=== PATIENT | male | born 1980 | race Caucasian/White ===

== ENCOUNTER 2019-10-16 13:48 | Emergency (ER) | payer OTHER, SELFPAY ==
[2019-10-16 14:00] VITALS: BP 138/79; PULSE 103; RESP 24; O2SAT 96; BMI 47.3
[2019-10-16 14:08] VITALS: BP 138/79; PULSE 103; RESP 18; TEMP 36.7; O2SAT 96; BMI 50.2
--- NOTE | 2019-10-16 14:10 | XR_ITS ---
PROCEDURE: XR HIP LT 2-3V W/PELVIS CLINICAL INDICATION: FALL Posttraumatic pain COMPARISON: No exams were available for comparison FINDINGS: No fracture or dislocation. Exostosis is noted along the anterior inferior iliac spine on the left. There is some deformity of the right ilium laterally and could be due to prior surgery. IMPRESSION: No acute findings. Dictated by: Weston Valenzuela MD 10/16/2019 16:15 Electronically signed by Weston Valenzuela MD in [place] 10/16/2019 16:15
--- NOTE | 2019-10-16 14:10 | XR_ITS ---
PROCEDURE: XR LUMBAR SPINE MIN 4V CLINICAL INDICATION: FALL Posttraumatic pain COMPARISON: No exams were available for comparison FINDINGS: There is normal alignment. No fracture or dislocation is evident. Degenerative disc disease is present at the thoracic lumbar junction. IMPRESSION: No acute findings. Dictated by: Weston Valenzuela MD 10/16/2019 16:16 Electronically signed by Weston Valenzuela MD in [place] 10/16/2019 16:16
--- NOTE | 2019-10-16 14:43 | HMH.EDUTC ---
[facility] [place] Disposition Clinical Impression: Low back strain Qualifiers: Encounter type: initial encounter Qualified Code(s): S39.012A - Strain of muscle, fascia and tendon of lower back, initial encounter Disposition: Home, Self-Care Condition on Discharge: Good Instructions: Low Back Pain (Alternative Therapy), Cyclobenzaprine, Nabumetone, DI for Muscle Spasm Additional Instructions: Tordol with meal as needed for pain/inflammation Do not start until at least 8hrs 11pm *Remember you had a Toradol shot in the clinic today, which is similar to Motrin *Not additional anti-inflammatory like motrin, aleve, advil, or ibuprofen with Torodol. You can still take Tylenol every 4 hours as needed if you need something else for pain *Ice 20 minutes every 2 hours for the first 48 hours after the initial injury followed by moist heat every 20 minutes 3-4 times a day to affected area *Muscle relaxer every 8 hours as needed for muscle spasms but remember, it WILL cause drowsiness You cannot take it and drive, operate machinery or care for small children. *Keep this area active, no movement leads to more stiffness, However take it easy and avoid heavy lifting pushing or pulling *Follow up with you family doctor if no improvement for further treatment Return if needed Straight to ER if any life threatening symptoms Prescriptions: Cyclobenzaprine HCl [Flexeril 10mg tablet] 10 mg PO TID PRN #15 tab PRN Reason: Muscle Spasm Transmission Status: Received by [facility] Ketorolac Tromethamine [Toradol 10mg tablet] 10 mg PO Q4-6H PRN 5 Days #30 tab PRN Reason: Moderate Pain Transmission Status: Received by [facility] Referrals: Kevon Son MD [Primary Care Provider] - As needed Forms: Work/School Release Time of Disposition: 15:03 Medical Decision Making - Mark Inquiry Pt receiving controlled substance: No Mark was queried for this patient: No Vital Signs: 10/16/19 14:00 10/16/19 14:08 10/16/19 15:09 Temperature 98.0 F 98 F Temperature Source Oral Oral Pulse Rate 103 H Pulse Rate [Right Radial] 103 H 103 H Respiratory Rate 24 18 18 Blood Pressure 138/79 Blood Pressure [Left Arm] 138/79 138/79 Blood Pressure Mean [Left Arm] 98 98 Blood Pressure Source Automatic Cuff Blood Pressure Source [Left Arm] Automatic Cuff Automatic Cuff Blood Pressure Position Sitting Blood Pressure Position [Left Arm] Standing Sitting 02 Sat by Pulse Oximetry 96 96 Oxygen Delivery Method Room Air Room Air Room Air Orders (Tests/Meds): ED MEDICATIONS Discontinued Medications Generic Name Dose Route Start Last Admin Trade Name [place] PRN Reason Stop Dose Admin Ketorolac Tromethamine 60 mg 10/16/19 14:47 10/16/19 14:49 Toradol 60mg/2ml Vial IM 10/16/19 14:48 60 mg ONCE ONE Administration - Radiology Data #1 Image(s): L-Spine Image Reviewed: Yes I reviewed the patient's radiology image w/the ED provider Preliminary Findings: No Fracture Seen #2 Image(s): Hip (left) - Reevaluation(s) Time: 15:00 Reevaluation #1: Patient state that medication helped with pain in his lower back area [facility] [place] HPI - General Stated complaint: strained back Time Seen by Provider: 10/16/19 14:43 Mode of Arrival: Ambulatory Source of Information: Patient Limitations: No Limitations Description of Symptoms (Recalled from Triage Doc. by RN): WAS LIFTING TIRES INTO TRUCK. TIRES SLIPPED AND HE HEARD A POP IN HIS BACK HEENT Symptoms (Recalled from RN notes): No Resp Symptoms (Recalled from RN notes): No Skin Symptoms (Recalled from RN notes): No MS Symptoms (Recalled from RN notes): Yes Functional Status (Recalled from RN notes): wnl - History of Present Illness Provider Complaint: Patient states that he was loading some semi tires on truck when tailgate strap broke and tire fell with him holding it and it jerked his back State that he felt a pop now feels like he is having spasms in his lower ba
[2019-10-16 15:09] VITALS: BP 138/79; PULSE 103; RESP 18; TEMP 36.6; O2SAT 96
== END 2019-10-16 15:21 | disposition home or self-care (01) ==
LOC: ER 13:59 → UTC 14:00
PROVIDERS: Emergency Provider Nurse Practitioner; PCP Family Medicine
DX: S39.012A Strain of muscle, fascia and tendon of lower back, initial encounter (principal); X50.0XXA Overexertion from strenuous movement or load, initial encounter; F17.210 Nicotine dependence, cigarettes, uncomplicated
CPT/HCPCS: 72100; 72110; 73502; 96372; 99202

== ENCOUNTER 2019-11-01 16:15 | Emergency (ER) | payer OTHER, SELFPAY ==
[2019-11-01 16:30] VITALS: BP 156/111; PULSE 86; RESP 22; TEMP 36.9; O2SAT 97; BMI 51.7
--- NOTE | 2019-11-01 16:46 | HMH.EDUTC ---
[facility] [place]ression: Sinusitis Qualifiers: Sinusitis location: unspecified location Chronicity: acute Recurrence: non-recurrent Qualified Code(s): J01.90 - Acute sinusitis, unspecified Otitis media Qualifiers: Otitis media type: suppurative Chronicity: acute Laterality: bilateral Recurrence: non-recurrent Spontaneous tympanic membrane rupture: without spontaneous rupture Qualified Code(s): H66.003 - Acute suppurative otitis media without spontaneous rupture of ear drum, bilateral Disposition: Home, Self-Care Condition on Discharge: Good Instructions: Sinusitis, DI for Sinusitis Additional Instructions: Drink plenty of fluids. Take tylenol or ibuprofen for pain or fever. Take the medications as directed. Follow up with your regular doctor. GO TO THE ER FOR ANY WORSENING SYMPTOMS Don't start the oral steroids until tomorrow, since you had the shot here today. Prescriptions: methylPREDNISolone [Medrol] 4 mg PO DIRECTED 6 Days #21 tab.[email or web address] Transmission Status: Pending to [facility] Azithromycin [Z-Ismael 250mg Tab*] 250 mg PO UD DOSE PK #6 tab [facility] Referrals: Kevon Son MD [Primary Care Provider] - Time of Disposition: 16:49 Medical Decision Making - Medical Records Medical records reviewed: No: I reviewed the patient's medical records. - Mark Inquiry Pt receiving controlled substance: No Vital Signs: 11/01/19 16:30 Temperature 98.4 F Temperature Source Oral Pulse Rate [Left Brachial] 86 Respiratory Rate 22 Blood Pressure [Left Arm] 156/111 H Blood Pressure Mean [Left Arm] 126 Blood Pressure Source [Left Arm] Automatic Cuff Blood Pressure Position [Left Arm] Sitting 02 Sat by Pulse Oximetry 97 Oxygen Delivery Method Room Air [facility] [place] - General Stated complaint: drainage, ears popping Time Seen by Provider: 11/01/19 16:46 Mode of Arrival: Ambulatory Source of Information: Patient Limitations: No Limitations Description of Symptoms (Recalled from Triage Doc. by RN): PATIENT C/O SINUS DRAINAGE, SCRATCHY THROAT, AND POPPING IN BILATERAL EARS SINCE YESTERDAY MORNING. DENIES FEVER OR ANY OTHER SYMPTOMS HEENT Symptoms (Recalled from RN notes): Yes Resp Symptoms (Recalled from RN notes): No Skin Symptoms (Recalled from RN notes): No MS Symptoms (Recalled from RN notes): No Functional Status (Recalled from RN notes): WNL - History of Present Illness Provider Complaint: He c/o 3 days of worsening sinus and ear pressure. He denies any cough. He is having bilateral ear pain. - Related Data Previous Rx's Medication Instructions Recorded Azithromycin [Z-Ismael 250mg Tab*] 250 mg PO UD DOSE PK #6 tab 11/01/19 methylPREDNISolone [Medrol] 4 mg PO DIRECTED 6 Days #21 11/01/19 tab.ds.pk Allergies Allergy/AdvReac Type Severity Reaction Status Date / Time No Known Allergies Allergy Verified 01/11/19 10:28 - Worker's Comp Is this a Worker's Comp case?: No [facility] History - Hepatitis A Screen Drug use history?: No High risk sexual behaviors?: No History of sexually transmitted infection?: No Currently employed?: No Childcare worker?: No Do you have indoor plumbing?: Yes Do you have electricity?: Yes Attestation statement:: This patient has been screened for Hepatitis A risk factors. I have reviewed the patient's past medical history: Yes Medical History: Denies:: Diabetes Mellitus Type 1, Diabetes Mellitus Type 2, Hypertension Other Surgeries: Yes: No Previous Surgery - Social History Smoking Status: Current every day smoker Tobacco Type: cigarettes # Packs/Day (cigarettes): 1 Alcohol Intake: never Substance Use Type: denies use Occupational Status: other Housing: house Household Members: family Family Hx:: Cancer, Diabetes ROS Obtained: Yes All systems reviewed & no additional complaints - Constitutional Constitutional: Denies chills, Denies fever(s), Reports poor appetite,
[2019-11-01 16:58] VITALS: BP 117/76; PULSE 86; RESP 22; TEMP 36.9; O2SAT 97
== END 2019-11-01 17:03 | disposition home or self-care (01) ==
PROVIDERS: Emergency Provider Nurse Practitioner Family; PCP Family Medicine
DX: J01.90 Acute sinusitis, unspecified (principal); H66.003 Acute suppurative otitis media without spontaneous rupture of ear drum, bilateral
CPT/HCPCS: 96372; 99201

== ENCOUNTER 2019-12-06 14:15 | Emergency (ER) | payer OTHER, SELFPAY ==
[2019-12-06 14:44] VITALS: BP 141/85; PULSE 98; RESP 20; TEMP 36.9; O2SAT 100; BMI 51.7
--- NOTE | 2019-12-06 14:50 | HMH.EDUTC ---
[facility] – [place] Disposition Clinical Impression: Otitis media Qualifiers: Otitis media type: unspecified Laterality: bilateral Qualified Code(s): H66.93 - Otitis media, unspecified, bilateral Disposition: Home, Self-Care Condition on Discharge: Good Instructions: Middle Ear Infections (Alternative Therapy), Middle Ear Infection, Amoxicillin Additional Instructions: *Monitor Temp, Over the counter Motrin or Tylenol as directed/as needed Tylenol every 4 hours and Motrin every 6 hours (as long as your family doctor has told you that you can take it) for fever or pain. and straight to ER if unable to lower temp less than 101.0 after medication given *Warm salt water gargles may help to soothe the throat *Throat Lozenges *Warm fluids like tea with honey may help to soothe the throat *Sleep elevated *Humidifier/Vaporizer *Flonase 2 sprays in each nostril daily but be aware that it may take 2-3 days before you notice improvement Your throat swab was sent for culture. Those results are typically sent to your primary care. Be sure to follow up in 2-3 days with your family doctor/primary care physician if no improvement so they can review those result and treat if necessary. If you don?t have a primary care doctor, I recommend you get one but in the mean time, you will have to return to a walk in clinic Follow up IMMEDIATELY for new or worsening symptoms or no Noticeable improvement over the next 48-72 hours. 911 for difficulty breathing or swallowing Prescriptions: Amoxicillin [Amoxicillin 500mg Cap] 500 mg PO TID #30 cap Transmission Status: Received by [facility] Referrals: Kevon Son MD [Primary Care Provider] - As needed Time of Disposition: 15:02 Medical Decision Making - Mark Inquiry Pt receiving controlled substance: No Mark was queried for this patient: No Vital Signs: 12/06/19 14:44 Temperature 98.4 F Temperature Source Oral Pulse Rate [Right Brachial] 98 H Respiratory Rate 20 Blood Pressure [Right Arm] 141/85 H Blood Pressure Mean [Right Arm] 103 Blood Pressure Source [Right Arm] Automatic Cuff Blood Pressure Position [Right Arm] Sitting 02 Sat by Pulse Oximetry 100 Oxygen Delivery Method Room Air [facility] [place] HPI - General Stated complaint: ear pain Time Seen by Provider: 12/06/19 14:50 Mode of Arrival: Ambulatory Source of Information: Patient Limitations: No Limitations Description of Symptoms (Recalled from Triage Doc. by RN): PATIENT C/O LEFT EAR PAIN X 1 WEEK HEENT Symptoms (Recalled from RN notes): Yes Resp Symptoms (Recalled from RN notes): No Skin Symptoms (Recalled from RN notes): No MS Symptoms (Recalled from RN notes): No Functional Status (Recalled from RN notes): WNL - History of Present Illness Provider Complaint: Patient states that he has been having pain in both ears State that he was seen and treated and given antibiotics and he has taken all of them and now feels like his ear infections has returned States that he came back in to get his ears looked at - Related Data Previous Rx's Medication Instructions Recorded Amoxicillin [Amoxicillin 500mg 500 mg PO TID #30 cap 12/06/19 Cap] Allergies Allergy/AdvReac Type Severity Reaction Status Date / Time No Known Allergies Allergy Verified 01/11/19 10:28 - Worker's Comp Is this a Worker's Comp case?: No [facility] History - Hepatitis A Screen Drug use history?: No High risk sexual behaviors?: No History of sexually transmitted infection?: No Currently employed?: No Childcare worker?: No Do you have indoor plumbing?: Yes Do you have electricity?: Yes Attestation statement:: This patient has been screened for Hepatitis A risk factors. I have reviewed the patient's past medical history: Yes Medical History: Denies:: Diabetes Mellitus Type 1, Diabetes Mellitus Type 2, Hypertension Other Surgeries: Yes: No Previous Surgery - Social History Smoking Status: Current every day smoker Tobacco Type: cig
[2019-12-06 15:00] VITALS: BP 141/85; PULSE 98; RESP 20; TEMP 36.9; O2SAT 100
== END 2019-12-06 15:01 | disposition home or self-care (01) ==
PROVIDERS: Emergency Provider Nurse Practitioner; PCP Family Medicine
DX: H66.93 Otitis media, unspecified, bilateral (principal); F17.210 Nicotine dependence, cigarettes, uncomplicated
CPT/HCPCS: 99201

== ENCOUNTER 2019-12-17 16:24 | Emergency (ER) | payer OTHER, SELFPAY ==
[2019-12-17 17:08] VITALS: BP 150/85; PULSE 82; RESP 20; TEMP 36.7; O2SAT 96; BMI 54.8
--- NOTE | 2019-12-17 17:09 | HMH.EDUTC ---
[facility] [place] Disposition Clinical Impression: Otitis media Qualifiers: Otitis media type: suppurative Chronicity: acute Laterality: bilateral Recurrence: non-recurrent Spontaneous tympanic membrane rupture: without spontaneous rupture Qualified Code(s): H66.003 - Acute suppurative otitis media without spontaneous rupture of ear drum, bilateral Disposition: Home, Self-Care Condition on Discharge: Good Instructions: DI for Otitis Media (Middle Ear Infection)-Child Prescriptions: Cefdinir [Omnicef 300mg Capsule] 300 mg PO BID 10 Days #20 cap Transmission Status: Pending to [facility] predniSONE [Prednisone 20mg Tab] 20 mg PO BID 7 Days #14 tab Transmission Status: Pending to [facility] Referrals: Kevon Son MD [Primary Care Provider] - Time of Disposition: 17:12 Medical Decision Making - Mark Inquiry Pt receiving controlled substance: No [facility] [place] HPI - General Stated complaint: L ear pain Time Seen by Provider: 12/17/19 17:09 - History of Present Illness Provider Complaint: Left ear pain X 3 week. Has taken Zpack, Prednisone and then Amoxil. [place] a little better than recurred. Feels like ear is popping. Hurts when he coughs. No fever. Onset (ago): week(s) (3) Associated symptoms: denies other symptoms Treatments prior to arrival: other (Zithromax, Prednisone, Amoxil) - Related Data Previous Rx's Medication Instructions Recorded Amoxicillin [Amoxicillin 500mg 500 mg PO TID #30 cap 12/06/19 Cap] Cefdinir [Omnicef 300mg Capsule] 300 mg PO BID 10 Days #20 cap 12/17/19 predniSONE [Prednisone 20mg 20 mg PO BID 7 Days #14 tab 12/17/19 Tab] Allergies Allergy/AdvReac Type Severity Reaction Status Date / Time No Known Allergies Allergy Verified 01/11/19 10:[address] [facility] History - Hepatitis A Screen Attestation statement:: This patient has been screened for Hepatitis A risk factors. I have reviewed the patient's past medical history: Yes Medical History: Denies:: Diabetes Mellitus Type 1, Diabetes Mellitus Type 2, Hypertension Other Surgeries: Yes: No Previous Surgery - Social History Smoking Status: Current every day smoker Tobacco Type: cigarettes # Packs/Day (cigarettes): 1 Alcohol Intake: never Substance Use Type: denies use Occupational Status: other Housing: house Household Members: family Family Hx:: Cancer, Diabetes ROS Obtained: Yes All systems reviewed & no additional complaints - ENT Ears, Nose, Mouth, and Throat: Reports otalgia Physical Exam - General General appearance: alert, in no apparent distress - Head Head exam: atraumatic, normocephalic, normal inspection - Eye Eye exam: Present: normal appearance, PERRL, EOMI - ENT ENT exam: Present: normal exam, normal oropharynx, mucous membranes moist, normal external ear exam - Expanded ENT Exam TM/Canal exam: Bilateral TM: erythema, bulging, effusion - Neck Neck exam: Present: normal inspection, full ROM, trachea midline. Absent: meningismus, lymphadenopathy - Chest Chest inspection: Present: normal inspection, symmetric chest wall rise. Absent: tenderness - Respiratory Respiratory exam: Present: normal lung sounds bilaterally. Absent: respiratory distress - Cardiovascular Cardiovascular exam: Present: regular rate, normal rhythm. Absent: JVD - Abdominal Exam Abdominal exam: Present: soft, normal bowel sounds. Absent: distention, tenderness, guarding - Extremities Exam Extremities exam: Present: normal inspection, full ROM, normal capillary refill. Absent: calf tenderness - Back Exam Back exam: Present: normal inspection. Absent: tenderness - Neurological Exam Neurological exam: Present: alert, oriented X3 - Psychiatric Psychiatric exam: Present: normal affect, normal mood - Skin Skin exam: Present: warm, dry, intact, normal color - Lymphatic Lymphatic Findings: no adenopathy
[2019-12-17 17:17] VITALS: BP 150/85; PULSE 82; RESP 20; TEMP 36.7; O2SAT 96
== END 2019-12-17 17:21 | disposition home or self-care (01) ==
PROVIDERS: Emergency Provider Physician Assistant; PCP Family Medicine
DX: H66.003 Acute suppurative otitis media without spontaneous rupture of ear drum, bilateral (principal); F17.210 Nicotine dependence, cigarettes, uncomplicated
CPT/HCPCS: 99201

== ENCOUNTER → 2020-01-24 13:20 | Outpatient (CLI) | payer OTHER, SELFPAY ==
[2020-01-24 13:37] LABS: Basophils % 0.5 % (0.1-2.0); Eosinophils # 0.3 K/mm3 (0.0-0.4); Eosinophils % 3.1 % (0.1-12.0); Lymphocytes # 2.2 K/mm3 (0.7-4.5); Lymphocytes % 24.9 % (10-50); Mean Corpuscular HGB Conc 34.7 g/dL (31.8-35.4); Mean Corpuscular Hemoglobin 29.1 pg (27.0-31.2); Mean Corpuscular Volume 83.7 fl (80-94); Mean Platelet Volume 8.1 fl (7.4-10.4); Monocytes # 0.5 K/mm3 (0.1-1.0); Monocytes % 5.8 % (1.7-9.3); Neutrophils # 5.7 K/mm3 (1.8-7.8); Neutrophils % 65.7 % (37.0-80.0); Platelet Count 252 K/mm3 (142-424); Red Blood Count 5.49 M/mm3 (4.60-6.20); Red Cell Distribution Width 14.2 % (11.5-17.5); White Blood Count 8.7 K/mm3 (4.8-10.8)
--- NOTE | 2020-01-24 13:43 | ECG_ITS ---
APPROVED REPORT Exam: Resting ECG HR:79 bpm ECG Measurements Heart Rate 79 AXES TX 166 P 20 QRSd 88 QRS 65 QT 362 T 53 QTc 415 <Conclusion> Normal sinus rhythm Normal ECG Electronically signed by : Kevon Tavares, 01/26/2020 06:26:26
[2020-01-24 14:55] LABS: Chloride 104 mmol/L (98-107); Potassium 4.5 mmoL/L (3.5-5.1); Sodium 140 mmol/L (136-145)
[2020-01-24 14:58] LABS: Anion Gap 14.5 mEq/L (5-15); Blood Urea Nitrogen 15 mg/dl (9-20); Carbon Dioxide 26 mmol/L (22.0-30.0); Estimated Glomerular Filt Rate 108 ml/min (>60); GFR (African American) 131 ML/MIN (>60)
[2020-01-24 14:59] LABS: Calcium 9.4 mg/dl (8.4-10.2); Glucose 171 mg/dl (74-100)
[2020-01-24 15:16] LABS: Coronavirus 19 IgG Antibody Negative (Negative); Coronavirus 19 IgM Antibody Negative (Negative)
== END ==
PROVIDERS: Visit Provider Otolaryngology
DX: Z01.818 Encounter for other preprocedural examination (principal); H65.05 Acute serous otitis media, recurrent, left ear
CPT/HCPCS: 36415; 80048; 85025; 86328; 93005

== ENCOUNTER 2020-01-25 06:41 | Day surgery (SDC) | payer OTHER, SELFPAY ==
[2020-01-19 10:57] VITALS: BMI 53.2
[2020-01-25] VITALS (11 sets, daily range): BP systolic 114–148; BP diastolic 64–98; PULSE 78–90; RESP 12–24; TEMP 36.2–36.9; O2SAT 94–97
--- NOTE | 2020-01-25 07:26 | P.PN_ITS ---
[facility] Anesthesia Checklist - Patient Identification Patient Identification: Arm Band - Structural Data Admitted From: Home Planned Operative Procedure/s: Left MT Consent for Planned Operative Procedure(s) Verified: Yes Verified Documents: Surgical Consent, History and Physical - NPO Status Verified Time NPO: 00:00 - Additional verifications Anesthesia Reactions: No (never had) Hx Blood Transfusions: No Blood Transfusion Reaction: No - Airway Assessment C-Spine Mobility Assessed: Yes (mp3) TMJ Mobility Assessed: Yes Dentition: Good Dentition - Neurological Assessment Level of Consciousness: Awake, Alert - Anesthesia Plan Anesthesia Risk discussed: Yes Anesthesia Plan: Verified ASA Class: III Anesthesia Type: General [facility] History I have reviewed the patient's past medical history: Yes Medical History: Denies:: Cancer, Diabetes Mellitus Type 1, Diabetes Mellitus Type 2, Hypertension, Internal Pacemaker, MRSA, Seizures *Have you ever received a pneumonia vaccine?: No *Have you received a flu vaccine this season?: No Other Medical History: Reports: Other (morbid obesity). Denies: Blood Transfusion Reaction Anesthesia experience/problems:: nac Other Surgeries: Yes: No Previous Surgery. No: Pacemaker Amputation: No Fractures: No - *Social History Last grade of school completed: 11th or 12th Smoking Status: Current every day smoker Tobacco Type: cigarettes # Packs/Day (cigarettes): 1 #Yrs smoked (if former smoker): 25 Alcohol Intake: never Substance Use Type: denies use *Occupational Status:: other Housing: house Household Members: significant other *Travel in the last 8 weeks: None Family Hx:: Hyperlipidemia, Hypertension
--- NOTE | 2020-01-25 08:58 | P.PN_ITS ---
[facility] Anesthesia Record Part I Intake, IV Amount: 500 Estimated blood loss (mL): 0 Urine output (mL): 0 Blood Pressure: 114/65 SaO2: 95 Pulse Rate: 80 Respiratory Rate: 12 Temperature: 97.5 F Patient is:: Awake, Stable Stable to PACU at:: 08:55
--- NOTE | 2020-01-25 09:14 | HMH.OPNOTE ---
Date of procedure: 01/25/20 Pre-op Diagnosis:: Left serous otitis media Post-op Diagnosis:: same Procedure performed:: Left myringotomy and tube Surgeon:: Lele Hamilton MD TOWEL DISTRIBUTOR:: Dusty Corona Anesthesia: GETA Estimated blood loss (mL): 0 Operative findings:: same Operative note:: With the patient under general anesthesia the left ear was prepped and draped. Using the operating microscope for all the procedure, an incision was made in the posterior inferior quadrant and serous fluid was aspirated, a Triune T-tube was place. Ciprodex drops were applied. The patient tolerated the procedure well and was sent to recovery in good general condition. Condition: stable Disposition: PACU Complications:: none
--- NOTE | 2020-01-26 12:22 | P.PN_ITS ---
[facility] Anesthesia Record Part II Discharge Time: 09:29 Destination: Surgical Day Care (OP Surgery) PACU nurse assessment reviewed?: Yes Patient Condition:: Good Anesthesia Complications:: None Swallowing reflex intact?: Yes Cyanosis?: No Blood Pressure: 145/94 Pulse Rate: 79 Temperature: 98.4 F Mental Status: Alert & Oriented Pain level:: 0 Nausea and/or vomitting:: None Intake, IV Amount: 0
[2020-01-26 12:24] VITALS: BP 145/94; PULSE 79; TEMP 36.9
== END 2020-01-25 10:20 | disposition home or self-care (01) ==
LOC: OR 06:43
PROVIDERS: PCP Family Medicine; Visit Provider Otolaryngology
PROC: (CPT 69436; principal; 2020-01-25 08:15)
DX: H65.92 Unspecified nonsuppurative otitis media, left ear (principal)
CPT/HCPCS: 69436; 96374; 96375; J2405

== ENCOUNTER 2020-02-17 21:34 | Emergency (ER) | payer OTHER, SELFPAY ==
[2020-02-17 21:44] VITALS: BP 152/110; PULSE 95; RESP 17; TEMP 36.8; O2SAT 99; BMI 50.2
[2020-02-17 22:03] VITALS: BP 144/76; PULSE 91; RESP 17; TEMP 36.8; O2SAT 97
--- NOTE | 2020-02-18 00:17 | HMH.EDGENADL ---
ED Disposition Clinical Impression: Dental abscess, Dental caries, Toothache Disposition: Home, Self-Care Condition on Discharge: Good Instructions: Tooth Abscess, DI for Dental Pain Prescriptions: Hydrocodone/Acetaminophen [Fawnskin 5-325 Tablet] 1 each PO Q6HP PRN #3 tab PRN Reason: Moderate To Severe Pain Prescription Printed Penicillin V Potassium 500 mg PO Q6HP 7 Days #28 tab Prescription Printed Referrals: Kevon Son MD [Primary Care Provider] - - Critical Care Critical Care Time: No Attestation: On 02/17/20, the high probability of a clinically significant, sudden or life threatening deterioration of the following system(s) required my full and direct attention, intervention and personal management. The time I documented below is in addition to time spent performing reported procedures but includes the following listed in this critical care notation. Medical Decision Making - Medical Records Medical records reviewed: Yes: I reviewed the patient's medical records. - Mark Inquiry Pt receiving controlled substance: Yes Mark was queried for this patient: Yes Reference #:: [id number] Risks and benefits of using a controlled substance: were discussed with pt by me Vital Signs: 02/17/20 21:44 02/17/20 22:03 Temperature 98.3 F 98.3 F Temperature Source Oral Pulse Rate 91 H Pulse Rate [Right Brachial] 95 H Respiratory Rate 17 17 Blood Pressure 144/76 H Blood Pressure [Right Arm] 152/110 H Blood Pressure Mean [Right Arm] 124 Blood Pressure Source Automatic Cuff Blood Pressure Source [Right Arm] Automatic Cuff Blood Pressure Position Sitting Blood Pressure Position [Right Arm] Sitting 02 Sat by Pulse Oximetry 99 Oxygen Delivery Method Room Air Room Air Orders (Tests/Meds): ED MEDICATIONS Discontinued Medications Generic Name Dose Route Start Last Admin Trade Name Freq PRN Reason Stop Dose Admin Hydrocodone Bitart/Acetaminophen 1 tab 02/17/20 21:50 02/17/20 22:00 Hydrocodone/Apap 5/325 Mg Tablet PO 02/17/20 21:51 1 tab ONCE ONE Administration Penicillin V Potassium 500 mg 02/17/20 21:50 02/17/20 22:00 Penicillin V Potassium 250mg Tablet PO 02/17/20 21:51 500 mg ONCE ONE Administration Protocol Medical Decision Narrative: Patient is a 39 year old male who presents with dental pain. he is awake, alert, stable. afebrile. No jaw tenderness or swelling. Has a fractured tooth #17 without obvious abscess. Attempted dental block however patient did not tolerate this. Given norco 5/325 mg in the ED PO as well as penicillin VK 500 mg PO. Will discharge with return precautions. General Adult HPI - General Chief complaint: Dental/Oral Stated complaint: Dental pain Time Seen by Provider: 02/17/20 21:44 Mode of Arrival: Ambulatory Limitations: No Limitations Description of Symptoms (Recalled from ER Triage Doc. by RN): Patient reports severe dental pain on the bottom left side. Patient reports he has an appt with oral surgery tomorrow at 1300 but cant no longer take the pain. - History of Present Illness HPI narrative: The patient is a 39 year old male who presents with dental pain. Patient has a known fractured bottom molar and is scheduled to see an oral surgeon tomorrow for extraction. Today he had increased pain and swelling around the tooth. No fevers. No other complaints - Related Data Previous Rx's Medication Instructions Recorded Hydrocodone/Acetaminophen [Fawnskin 1 each PO Q6HP PRN #3 tab 02/17/20 5-325 Tablet] Penicillin V Potassium 500 mg PO Q6HP 7 Days #28 tab 02/17/20 Allergies Allergy/AdvReac Type Severity Reaction Status Date / Time No Known Allergies Allergy Verified 02/08/20 13:29 [facility] History - Hepatitis A Screen Drug use history?: No High risk sexual behaviors?: No History of sexually transmitted infection?: No Currently employed?: No Childcare worker?: No Do you have indoor plumbing?: Yes Do you have alison
== END 2020-02-17 22:10 | disposition home or self-care (01) ==
PROVIDERS: Emergency Provider Emergency Medicine; PCP Family Medicine
DX: K04.7 Periapical abscess without sinus (principal); K02.9 Dental caries, unspecified; F17.210 Nicotine dependence, cigarettes, uncomplicated
CPT/HCPCS: 99281

== ENCOUNTER 2020-10-12 17:37 | Emergency (ER) | payer OTHER, SELFPAY ==
[2020-10-12 17:44] VITALS: BP 136/77; PULSE 89; RESP 20; TEMP 37.1; O2SAT 97; BMI 50.2
--- NOTE | 2020-10-12 17:54 | HMH.EDUTC ---
[facility] [place] Disposition Clinical Impression: Sinusitis Qualifiers: Sinusitis location: unspecified location Chronicity: acute Recurrence: non-recurrent Qualified Code(s): J01.90 - Acute sinusitis, unspecified Disposition: Home, Self-Care Condition on Discharge: Good Instructions: DI for Sinusitis Additional Instructions: Drink plenty of fluids. Take tylenol for pain or fever. Return if you begin to have difficulty breathing. Follow up with your regular doctor. GO TO THE ER FOR ANY WORSENING SYMPTOMS Prescriptions: Promethazine/Dextromethorphan [Promethazine-Dm Syrup] 5 ml PO Q6HP PRN #240 syrup PRN Reason: Cough [id number] methylPREDNISolone [Medrol] 4 mg PO DIRECTED 6 Days #21 tab.ds.pk Transmission Status: [facility] guaiFENesin [Mucinex] 600 mg PO BIDP PRN #30 tab.er.12h PRN Reason: Congestion Transmission Status: Received by [facility] Azithromycin [Z-Ismael 250mg Tab*] 250 mg PO UD DOSE PK #6 tab Transmission [facility]: [facility] Referrals: Kevon Son MD [Primary Care Provider] - Time of Disposition: 18:17 Medical Decision Making - Medical Records Medical records reviewed: No: I reviewed the patient's medical records. - Mark Inquiry Pt receiving controlled substance: No Vital Signs: 10/12/20 17:44 10/12/20 17:56 Temperature 98.7 F 98.7 F Temperature Source Oral Pulse Rate 89 Pulse Rate [Left] 89 Respiratory Rate 20 20 Blood Pressure 136/77 Blood Pressure [Right Arm] 136/77 Blood Pressure Mean [Right Arm] 96 02 Sat by Pulse Oximetry 97 - Lab Data Lab results reviewed: Yes: I reviewed the patient's lab results. Lab Results 10/12/20 17:56: Strep Scn Rapid Clinic Negative Orders (Tests/Meds): ORDERS Category Date Time Status Strep Screen Confirmation Stat Micro 10/12/20 17:56 Received [facility] [place] HPI - General Stated complaint: sore throat, cough Time Seen by Provider: 10/12/20 17:54 - History of Present Illness Provider Complaint: He states that he has been having sore throat, sinus congestion, and a cough for the past 3 days. He denies any fever/chills/body aches. He denies shortness of breath. - Related Data Previous Rx's Medication Instructions Recorded ofloxacin 0.3 % ear drops 4 drp OTIC BID 14 Days #5 ml 05/15/20 Azithromycin [Z-Ismael 250mg Tab*] 250 mg PO UD DOSE PK #6 tab 10/12/20 Promethazine/Dextromethorphan 5 ml PO Q6HP PRN #240 syrup 10/12/20 [Promethazine-Dm Syrup] guaiFENesin [Mucinex] 600 mg PO BIDP PRN #30 tab.er.12h 10/12/20 methylPREDNISolone [Medrol] 4 mg PO DIRECTED 6 Days #21 10/12/20 tab.ds.pk Allergies Allergy/AdvReac Type Severity Reaction Status Date / Time No Known Allergies Allergy Verified 10/12/20 17:55 [facility] History - Hepatitis A Screen Attestation statement:: This patient has been screened for Hepatitis A risk factors. I have reviewed the patient's past medical history: Yes Medical History: Denies:: Cancer, Diabetes Mellitus Type 1, Diabetes Mellitus Type 2, Hypertension, Internal Pacemaker, MRSA, Seizures Other Medical History: Reports: Other. Denies: Blood Transfusion Reaction Laterality Cases: Left: Myringotomy (Ear Tubes) Other Surgeries: Yes: No Previous Surgery. No: Pacemaker Amputation: No Fractures: No - Social History Smoking Status: Current every day smoker Tobacco Type: cigarettes # Packs/Day (cigarettes): 1 #Yrs smoked (if former smoker): 25 Alcohol Intake: never Substance Use Type: denies use Occupational Status: other Housing: house Household Members: significant other Family Hx:: Cancer, Diabetes ROS Obtained: Yes All systems reviewed & no additional complaints - Constitutional Constitutional: Reports poor appetite, Reports malaise - Eyes Eyes: Denies eye discharge - ENT Ears, Nose, Mouth, and Throat: Reports as per HPI - Cardiovascular Cardiovascular: Denies
[2020-10-12 17:56] VITALS: BP 136/77; PULSE 89; RESP 20; TEMP 37.1; O2SAT 97
[2020-10-12 19:26] LABS: UTC Strep Screen (Rapid) Negative (Negative)
== END 2020-10-12 18:18 | disposition home or self-care (01) ==
PROVIDERS: Emergency Provider Nurse Practitioner Family; PCP Family Medicine
DX: J01.90 Acute sinusitis, unspecified (principal); F17.210 Nicotine dependence, cigarettes, uncomplicated
CPT/HCPCS: 87880; 99202; G0463

== ENCOUNTER → 2021-05-17 14:00 | Outpatient (CLI) | payer OTHER, SELFPAY | PROVIDERS: Visit Provider Nurse Practitioner | DX: Z20.822 Contact with and (suspected) exposure to COVID-19 (principal) | CPT/HCPCS: C9803; U0003; U0005 ==

== ENCOUNTER → 2021-08-27 13:52 | Outpatient (CLI) | payer OTHER, SELFPAY ==
[2021-08-27 15:02] VITALS: BMI 53.5
== END ==
PROVIDERS: PCP Family Medicine; Visit Provider Family Medicine
DX: Z71.3 Dietary counseling and surveillance (principal); E11.9 Type 2 diabetes mellitus without complications
CPT/HCPCS: 97802

== ENCOUNTER 2021-10-23 12:35 | Emergency (ER) | payer OTHER, SELFPAY ==
[2021-10-23 12:35] VITALS: BP 147/84; PULSE 90; RESP 18; TEMP 36.8; O2SAT 97; BMI 50.9
--- NOTE | 2021-10-23 12:50 | HMH.EDUTC ---
[facility] [place] Disposition Clinical Impression: Abdominal discomfort Disposition: Home, Self-Care Condition on Discharge: Fair Instructions: Acute Abdominal Pain Additional Instructions: follow up pcp, return for worse Prescriptions: Pantoprazole Sodium [Protonix 40mg tablet] 40 mg PO DAILY #30 tab Transmission Status: Received by [facility] Referrals: Ale Montejo MD [Primary Care Provider] - Medical Decision Making - Mark Inquiry Pt receiving controlled substance: No Mark was queried for this patient: No Vital Signs: 10/23/21 12:35 10/23/21 13:03 10/23/21 14:06 Temperature 98.3 F 98.3 F Temperature Source Oral Oral Pulse Rate 82 Pulse Rate [Left Brachial] 90 90 Respiratory Rate 18 18 Blood Pressure 145/91 H Blood Pressure [Left Arm] 147/84 H 147/84 H Blood Pressure Mean 112 Blood Pressure Mean [Left Arm] 105 105 Blood Pressure Source [Left Arm] Automatic Cuff Automatic Cuff Blood Pressure Position [Left Arm] Sitting Sitting 02 Sat by Pulse Oximetry 97 97 96 Oxygen Delivery Method Room Air Room Air 10/23/21 14:59 Temperature 98.3 F Temperature Source Pulse Rate 88 Pulse Rate [Left Brachial] Respiratory Rate 18 Blood Pressure 145/89 H Blood Pressure [Left Arm] Blood Pressure Mean Blood Pressure Mean [Left Arm] Blood Pressure Source [Left Arm] Blood Pressure Position [Left Arm] 02 Sat by Pulse Oximetry Oxygen Delivery Method - Lab Data Lab Results 10/23/21 13:20: Stool Occult Blood Negative 10/23/21 13:23: WBC 10.1, RBC 5.61, Hgb 15.7, Hct 46.1, MCV 82.2, MCH 28.0, MCHC 34.1, RDW 14.0, Plt Count 267, MPV 8.6, Neut % (Auto) 74.7, Lymph % (Auto) 15.4, [place] % (Auto) 4.4, Eos % (Auto) 4.3, Baso % (Auto) 1.1, Neut # (Auto) 7.5, Lymph # (Auto) 1.6, [place] # (Auto) 0.5, Eos # (Auto) 0.4, Baso # (Auto) 0.1 10/23/21 13:23: Sodium 137, Potassium 3.9, Chloride 103, Carbon Dioxide 27, Anion Gap 10.9, BUN 12, Creatinine 0.70, Estimated Creat Clear 136, Estimated GFR 125, Est GFR ( Amer) 151, Glucose 196 H, Calcium 9.2, Total Bilirubin 0.4, AST 29, ALT 33, Alkaline Phosphatase 94, Total Protein 7.2, Albumin 4.2, Globulin 3.0, Albumin/Globulin Ratio 1.4, Lipase 42 Result diagrams: 10/23/21 13:23 10/23/21 13:23 Medical Decision Narrative: Due to patient reporting dark colored stool, pressure like feeling in upper abdomen into chest area with heartburn that started 3 days ago and feeling like food is getting stuck discussed with patient and will transfer to the ED for further work up and evaluation and patient agreed Called ED spoke with Ban and patient was moved to room 9 [facility] [place] HPI - General Stated complaint: stomach pains Time Seen by Provider: 10/23/21 12:50 Mode of Arrival: Ambulatory Source of Information: Patient Limitations: No Limitations Description of Symptoms (Recalled from Triage Doc. by RN): PATIENT C/O PRESSURE TO EPIGASTRIC AREA, HEART BURN, AND BLACK STOOLS SINCE YESTERDAY HEENT Symptoms (Recalled from RN notes): No Resp Symptoms (Recalled from RN notes): No Skin Symptoms (Recalled from RN notes): No MS Symptoms (Recalled from RN notes): No Functional Status (Recalled from RN notes): WNL - History of Present Illness Provider Complaint: Patient states that for the last three days he has been having pressure like feeling in his upper abdomen into chest area States that he feels like he needs to belch and he does and then feels immediate heart burn but does help a little with the pressure States that also he has been having dark colored stools almose black looking since it started States that today he when he lays back he feels something in there and feels like his food is going down and getting stuck in his upper abdomen and not passing right - Related Data Previous Rx's Medication Instructions Recorded Pantoprazole Sodium [Protonix 40mg 40 mg PO DAILY #30 tab 10/23/21 tablet] Allergies Allergy/AdvReac Type Severity Reaction Stat
--- NOTE | 2021-10-23 12:54 | PC.NURSE ---
PATIENT SENT TO ER PER Haily SIERRA APRN FOR FURTHER EVALUATION. REPORT GIVEN TO Mariela CHOWDHURY RN BY Haily SIERRA APRN
[2021-10-23 13:03] VITALS: BP 147/84; PULSE 90; RESP 18; TEMP 36.8; O2SAT 97; BMI 50.9
--- NOTE | 2021-10-23 13:12 | HMH.EDABDPAI ---
ED Disposition Clinical Impression: Abdominal discomfort Disposition: Home, Self-Care Condition on Discharge: Good Instructions: Acute Abdominal Pain Additional Instructions: follow up pcp, return for worse Prescriptions: Pantoprazole Sodium [Protonix 40mg tablet] 40 mg PO DAILY #30 tab Transmission Status: Pending to [facility] Referrals: Ale Montejo MD [Primary Care Provider] - - Critical Care Critical Care Time: No Attestation: On 10/23/21, the high probability of a clinically significant, sudden or life threatening deterioration of the following system(s) required my full and direct attention, intervention and personal management. The time I documented below is in addition to time spent performing reported procedures but includes the following listed in this critical care notation. Medical Decision Making - Medical Records Medical records reviewed: Yes: I reviewed the patient's medical records. - Mark Inquiry Pt receiving controlled substance: No Vital Signs: 10/23/21 12:35 10/23/21 13:03 Temperature 98.3 F 98.3 F Temperature Source Oral Oral Pulse Rate [Left Brachial] 90 90 Respiratory Rate 18 18 Blood Pressure [Left Arm] 147/84 H 147/84 H Blood Pressure Mean [Left Arm] 105 105 Blood Pressure Source [Left Arm] Automatic Cuff Automatic Cuff Blood Pressure Position [Left Arm] Sitting Sitting 02 Sat by Pulse Oximetry 97 97 Oxygen Delivery Method Room Air Room Air - Lab Data Lab Results 10/23/21 13:20: Stool Occult Blood Negative 10/23/21 13:23: WBC 10.1, RBC 5.61, Hgb 15.7, Hct 46.1, MCV 82.2, MCH 28.0, MCHC 34.1, RDW 14.0, Plt Count 267, MPV 8.6, Neut % (Auto) 74.7, Lymph % (Auto) 15.4, [place] % (Auto) 4.4, Eos % (Auto) 4.3, Baso % (Auto) 1.1, Neut # (Auto) 7.5, Lymph # (Auto) 1.6, [place] # (Auto) 0.5, Eos # (Auto) 0.4, Baso # (Auto) 0.1 10/23/21 13:23: Sodium 137, Potassium 3.9, Chloride 103, Carbon Dioxide 27, BUN 12, Creatinine 0.70, Estimated Creat Clear 136, Estimated GFR 125, Est GFR ( Amer) 151, Glucose 196 H, Calcium 9.2, Total Bilirubin 0.4, AST 29, ALT 33, Alkaline Phosphatase 94, Total Protein 7.2, Albumin 4.2, Globulin 3.0, Albumin/Globulin Ratio 1.4, Lipase 42 Result diagrams: 10/23/21 13:23 10/23/21 13:23 Orders (Tests/Meds): ORDERS Category Date Time Status Comprehensive Metabolic Panel Stat Lab 10/23/21 13:23 Results Lipase Stat Lab 10/23/21 13:23 Results Abdominal Pain HPI - General Chief Complaint: Abdominal Pain Stated Complaint: stomach pains Time Seen by Provider: 10/23/21 13:12 Mode of Arrival: Ambulatory Source of Information: Patient Limitations: No Limitations Description of Symptoms (Recalled from ER Triage Doc. by RN): PATIENT C/O PRESSURE TO EPIGASTRIC AREA, HEART BURN, AND BLACK STOOLS SINCE YESTERDAY - History of Present Illness HPI narrative: epigastric abd discomfort and black sttols recent peptobis use Consistency: intermittent Location: epigastric Severity: mild Radiation: none Migration to: no migration Relieving factors: nothing Exacerbating factors: eating Associated symptoms: denies other symptoms - Related Data Previous Rx's Medication Instructions Recorded Pantoprazole Sodium [Protonix 40mg 40 mg PO DAILY #30 tab 10/23/21 tablet] Allergies Allergy/AdvReac Type Severity Reaction Status Date / Time No Known Allergies Allergy Verified 10/12/20 17:55 [facility] History - Hepatitis A Screen Attestation statement:: This patient has been screened for Hepatitis A risk factors. Medical History: Denies:: Cancer, Diabetes Mellitus Type 1, Diabetes Mellitus Type 2, Hypertension, Internal Pacemaker, MRSA, Seizures Other Medical History: Reports: Other. Denies: Blood Transfusion Reaction Laterality Cases: Left: Myringotomy (Ear Tubes) Other Surgeries: Yes: No Previous Surgery. No: Pacemaker Amputation: No Fractures: No - Social History Smoking Status: Current every day smoker Tobac
[2021-10-23 13:31] LABS: Basophils # 0.1 K/mm3 (0-0.2); Basophils % 1.1 % (0.1-2.0); Eosinophils # 0.4 K/mm3 (0.0-0.4); Eosinophils % 4.3 % (0.1-12.0); Hematocrit 46.1 % (42.0-52.0); Hemoglobin 15.7 g/dL (14.1-18.0); Lymphocytes # 1.6 K/mm3 (0.7-4.5); Lymphocytes % 15.4 % (10-50); Mean Corpuscular HGB Conc 34.1 g/dL (31.8-35.4); Mean Corpuscular Volume 82.2 fl (80-94); Mean Platelet Volume 8.6 fl (7.4-10.4); Monocytes # 0.5 K/mm3 (0.1-1.0); Monocytes % 4.4 % (1.7-9.3); Neutrophils # 7.5 K/mm3 (1.8-7.8); Neutrophils % 74.7 % (37.0-80.0); Platelet Count 267 K/mm3 (142-424); Red Blood Count 5.61 M/mm3 (4.60-6.20); White Blood Count 10.1 K/mm3 (4.8-10.8)
[2021-10-23 13:37] LABS: Chloride 103 mmol/L (98-107); Potassium 3.9 mmoL/L (3.5-5.1); Sodium 137 mmol/L (136-145)
[2021-10-23 13:40] LABS: Alanine Aminotransferase 33 U/L (12-78); Albumin Level 4.2 g/dl (3.5-5.0); Albumin/Globulin Ratio 1.4 (1.1-1.8); Alkaline Phosphatase 94 U/L (38-126); Aspartate Amino Transferase 29 U/L (17-59); Bilirubin,Total 0.4 mg/dl (0.2-1.3); Blood Urea Nitrogen 12 mg/dl (9-20); Calcium 9.2 mg/dl (8.4-10.2); Creatinine Clearance Estimated 136 mL/min (50-200); Estimated Glomerular Filt Rate 125 ml/min (>60); GFR (African American) 151 ML/MIN (>60); Glucose 196 mg/dl (74-100); Lipase 42 U/L (23-300); Total Protein,Serum 7.2 g/dl (6.3-8.2)
[2021-10-23 13:58] LABS: Occult Blood,Stool Negative (Negative)
[2021-10-23 14:06] VITALS: BP 145/91; PULSE 82; O2SAT 96
[2021-10-23 14:59] VITALS: BP 145/89; PULSE 88; RESP 18; TEMP 36.8; O2SAT 98
[2021-10-23 15:23] LABS: Anion Gap 10.9 mEq/L (5-15); Carbon Dioxide 27 mmol/L (22.0-30.0)
== END 2021-10-23 15:00 | disposition home or self-care (01) ==
LOC: UTC 12:37 → ER 12:55
PROVIDERS: Emergency Provider Emergency Medicine; PCP Family Medicine
DX: R10.9 Unspecified abdominal pain (principal)
CPT/HCPCS: 80053; 82272; 83690; 85025; 99282; G0328

== ENCOUNTER 2021-11-22 15:25 | Emergency (ER) | payer OTHER, SELFPAY ==
[2021-11-22 15:51] VITALS: BP 136/76; PULSE 88; RESP 19; TEMP 36.6; O2SAT 95; BMI 49.1
--- NOTE | 2021-11-22 15:52 | HMH.EDUTC ---
[facility] [place] Clinical Impression: Sinusitis Qualifiers: Sinusitis location: unspecified location Chronicity: acute Recurrence: non-recurrent Qualified Code(s): J01.90 - Acute sinusitis, unspecified Disposition: Home, Self-Care Condition on Discharge: Good Instructions: DI for Sinusitis Additional Instructions: Drink plenty of fluids. Take tylenol or ibuprofen for pain or fever. Take the medications as directed. Follow up with your regular doctor. GO TO THE ER FOR ANY WORSENING SYMPTOMS Prescriptions: Benzonatate [Benzonatate 100mg cap] 100 mg PO TIDP PRN #30 cap PRN Reason: Cough Prescription Printed methylPREDNISolone [Medrol] 4 mg PO DIRECTED 6 Days #21 packet Prescription Printed Azithromycin [Z-Ismael 250mg Tab*] 250 mg PO UD DOSE PK #6 tab Prescription Printed Referrals: Ale Montejo MD [Primary Care Provider] - Time of Disposition: 16:11 Medical Decision Making - Medical Records Medical records reviewed: No: I reviewed the patient's medical records. - Mark Inquiry Pt receiving controlled substance: No Vital Signs: 11/22/21 15:51 11/22/21 16:29 Temperature 98 F 98 F Temperature Source Oral Pulse Rate 88 Pulse Rate [Left] 88 Respiratory Rate 19 19 Blood Pressure 136/76 Blood Pressure [Right Arm] 136/76 Blood Pressure Mean [Right Arm] 96 02 Sat by Pulse Oximetry 95 [facility] [place] - General Stated complaint: runny nose, ears, sorethroat Time Seen by Provider: 11/22/21 15:52 - History of Present Illness Provider Complaint: He states that for the past 2 days he has had worsening sinus congestion, sinus drainage, and bilateral ear pain. He denies any fever or chills. He refuses a covid-19 test. - Related Data Previous Rx's Medication Instructions Recorded Pantoprazole Sodium [Protonix 40mg 40 mg PO DAILY #30 tab 10/23/21 tablet] Azithromycin [Z-Ismael 250mg Tab*] 250 mg PO UD DOSE PK #6 tab 11/22/21 Benzonatate [Benzonatate 100mg 100 mg PO TIDP PRN #30 cap 11/22/21 cap] methylPREDNISolone [Medrol] 4 mg PO DIRECTED 6 Days #21 11/22/21 packet Allergies Allergy/AdvReac Type Severity Reaction Status Date / Time No Known Allergies Allergy Verified 11/22/21 15:53 [facility] History - Hepatitis A Screen Attestation statement:: This patient has been screened for Hepatitis A risk factors. I have reviewed the patient's past medical history: Yes Medical History: Denies:: Cancer, Diabetes Mellitus Type 1, Diabetes Mellitus Type 2, Hypertension, Internal Pacemaker, MRSA, Seizures Other Medical History: Reports: Other. Denies: Blood Transfusion Reaction Laterality Cases: Left: Myringotomy (Ear Tubes) Other Surgeries: Yes: No Previous Surgery. No: Pacemaker Amputation: No Fractures: No - Social History Smoking Status: Current every day smoker Tobacco Type: cigarettes # Packs/Day (cigarettes): 2 #Yrs smoked (if former smoker): 25 Alcohol Intake: never Substance Use Type: denies use Occupational Status: other Housing: house Household Members: significant other Family Hx:: Cancer, Diabetes ROS Obtained: Yes All systems reviewed & no additional complaints - Constitutional Constitutional: Reports as per HPI - Eyes Eyes: Denies eye discharge - ENT Ears, Nose, Mouth, and Throat: Reports as per HPI - Cardiovascular Cardiovascular: Denies chest pain - Respiratory Respiratory: Denies chest congestion, Reports cough, Denies cough with sputum production, Denies stridor Physical Exam - General General appearance: alert, in no apparent distress - Head Head exam: atraumatic, normocephalic, normal inspection - Eye Eye exam: Present: normal appearance, PERRL, EOMI - ENT ENT exam: Present: mucous membranes moist, normal external ear exam - Expanded ENT Exam TM/Canal exam: Bilateral TM: erythema, bulging, effusion Nose exam: Absent: sinus tenderness Nasal speculum exam: Bilateral: normal Mouth exam: Present: normal ex
[2021-11-22 16:29] VITALS: BP 136/76; PULSE 88; RESP 19; TEMP 36.6
== END 2021-11-22 16:30 | disposition home or self-care (01) ==
LOC: UTC 15:29
PROVIDERS: Emergency Provider Nurse Practitioner Family; PCP Family Medicine
DX: J01.90 Acute sinusitis, unspecified (principal)
CPT/HCPCS: 99212; G0463

== ENCOUNTER 2021-12-22 14:03 | Emergency (ER) | payer OTHER, SELFPAY ==
[2021-12-22 14:30] VITALS: BP 145/85; PULSE 89; RESP 18; TEMP 36.6; O2SAT 98; BMI 49.4
--- NOTE | 2021-12-22 15:03 | HMH.EDUTC ---
[facility] [place] Disposition Clinical Impression: Impacted ear wax Qualifiers: Laterality: right Qualified Code(s): H61.21 - Impacted cerumen, right ear Otitis media Qualifiers: Otitis media type: suppurative Chronicity: acute Laterality: right Recurrence: non-recurrent Spontaneous tympanic membrane rupture: without spontaneous rupture Qualified Code(s): H66.001 - Acute suppurative otitis media without spontaneous rupture of ear drum, right ear Disposition: Home, Self-Care Condition on Discharge: Good Instructions: Cerumen Impaction, Middle Ear Infection Additional Instructions: Start antibiotic as soon as possible and be sure to take as ordered for full length of time even though he should start feeling better in 24-48 hours. Tylenol or Motrin as needed for pain or fever Encourage fluids, water, Gatorade, Powerade, Pedialyte if infant/toddler/child Warm compresses often helps when placed over ear Return immediately for new or worsening symptoms no noticeable improvement in 48-72 hours and in 10-14 days to ensure the ears are return to baseline. Follow-up with primary care Prescriptions: Amoxicillin [Amoxicillin 500mg Tab] 500 mg PO BID 10 Days #20 tab Transmission Status: Pending to [facility] Carbamide Peroxide [Debrox] 5 drp OT DAILY 5 Days #15 ml Transmission Status: Received by [facility] Referrals: Ale Montejo MD [Primary Care Provider] - Time of Disposition: 15:26 Medical Decision Making - Mark Inquiry Pt receiving controlled substance: No Vital Signs: 12/22/21 14:30 Temperature 97.8 F Temperature Source Oral Pulse Rate [Right Brachial] 89 Respiratory Rate 18 Blood Pressure [Right Arm] 145/85 H Blood Pressure Mean [Right Arm] 105 Blood Pressure Source [Right Arm] Automatic Cuff Blood Pressure Position [Right Arm] Sitting 02 Sat by Pulse Oximetry 98 Oxygen Delivery Method Room Air [facility] [place] HPI - General Chief complaint: Urgent Treatment Center Stated complaint: right ear pain Time Seen by Provider: 12/22/21 15:03 Mode of Arrival: Ambulatory Source of Information: Patient Limitations: No Limitations Description of Symptoms (Recalled from Triage Doc. by RN): PATIENT C/O RIGHT EAR PAIN X 2 DAYS HEENT Symptoms (Recalled from RN notes): Yes Resp Symptoms (Recalled from RN notes): No Skin Symptoms (Recalled from RN notes): No MS Symptoms (Recalled from RN notes): No Functional Status (Recalled from RN notes): WNL - History of Present Illness Provider Complaint: 41 yr old male presnets for rt ear pain for 2 days and having problems hearing - Related Data Previous Rx's Medication Instructions Recorded Amoxicillin [Amoxicillin 500mg Tab] 500 mg PO BID 10 Days #20 tab 12/22/21 Carbamide Peroxide [Debrox] 5 drp OT DAILY 5 Days #15 ml 12/22/21 Allergies Allergy/AdvReac Type Severity Reaction Status Date / Time No Known Allergies Allergy Verified 11/22/21 15:53 - Worker's Comp Is this a Worker's Comp case?: No [facility] History - Hepatitis A Screen Attestation statement:: This patient has been screened for Hepatitis A risk factors. I have reviewed the patient's past medical history: Yes Medical History: Denies:: Cancer, Diabetes Mellitus Type 1, Diabetes Mellitus Type 2, Hypertension, Internal Pacemaker, MRSA, Seizures Other Medical History: Reports: Other. Denies: Blood Transfusion Reaction Laterality Cases: Left: Myringotomy (Ear Tubes) Other Surgeries: Yes: No Previous Surgery. No: Pacemaker Amputation: No Fractures: No - Social History Smoking Status: Current every day smoker Tobacco Type: cigarettes # Packs/Day (cigarettes): 2 #Yrs smoked (if former smoker): 25 Alcohol Intake: never Substance Use Type: denies use Occupational Status: other Housing: house Household Members: significant other Family Hx:: Cancer, Diabetes ROS Obtained: Yes Systems reviewed as appropriate & no additional complaints - Constitutional Constitutional: Reports system reviewed an
[2021-12-22 15:31] VITALS: BP 145/85; PULSE 89; RESP 18; TEMP 36.6; O2SAT 98
== END 2021-12-22 15:34 | disposition home or self-care (01) ==
PROVIDERS: Emergency Provider Nurse Practitioner Family; PCP Family Medicine
DX: H61.21 Impacted cerumen, right ear (principal); H66.001 Acute suppurative otitis media without spontaneous rupture of ear drum, right ear; F17.210 Nicotine dependence, cigarettes, uncomplicated
CPT/HCPCS: 99212; G0463

== ENCOUNTER 2021-12-25 11:02 | Emergency (ER) | payer OTHER, SELFPAY ==
--- NOTE | 2021-12-25 11:12 | HMH.EDUTC ---
[facility] [place] Clinical Impression: Right otitis externa Qualifiers: Otitis externa type: unspecified type Chronicity: acute Qualified Code(s): H60.501 - Unspecified acute noninfective otitis externa, right ear Disposition: Home, Self-Care Condition on Discharge: Good Instructions: DI for Otitis Externa, How to Instill Ear Drops Additional Instructions: Finish the antibiotics (amoxicillin) that you are already on. Start the cipro-dex ear drops as directed to your right ear. Don't start the oral antibiotics until tomorrow since you had the shot here today. Take tylenol for pain. Follow up with your primary care physician. Follow up with ENT. GO TO THE ER FOR ANY WORSENING SYMPTOMS OR CONCERNS Prescriptions: Ciprofloxacin HCl/Dexameth [Cipro 0.3%-Dex 0.1% Otic Susp 7.5mL] 2 drops EAR-RIGHT BID 7 Days #1 ml [id number] methylPREDNISolone [Medrol] 4 mg PO DIRECTED 6 Days #21 packet Transmission Status: [id number] Referrals: Ale Montejo MD [Primary Care Provider] - Lele Hamilton MD [Referring] - Forms: Work/School Release Time of Disposition: 11:41 Medical Decision Making - Medical Records Medical records reviewed: No: I reviewed the patient's medical records. - Mark Inquiry Pt receiving controlled substance: No Vital Signs: 12/25/21 11:15 Temperature 98.2 F Temperature Source Oral Pulse Rate [Left] 89 Respiratory Rate 16 Blood Pressure [Right Arm] 127/87 Blood Pressure Mean [Right Arm] 100 02 Sat by Pulse Oximetry 97 Orders (Tests/Meds): ED MEDICATIONS Discontinued Medications Generic Name Dose Route Start Last Admin Trade Name [place] PRN Reason Stop Dose Admin Ceftriaxone Sodium 1 gm 12/25/21 11:29 Ceftriaxone 1gm Vial IM 12/25/21 11:30 ONCE ONE Lidocaine HCl 0 ml 12/25/21 11:29 Lidocaine 1% 5ml Pf Vial IM 12/25/21 11:30 ONCE ONE Methylprednisolone Sodium Succinate 125 mg 12/25/21 11:29 Methylprednisolone Sod Succ 125mg Vial IM 12/25/21 11:30 ONCE ONE [facility] [place] - General Stated complaint: Ear pain, inflamation Time Seen by Provider: 12/25/21 11:12 - History of Present Illness Provider Complaint: He is back with right ear pain today. He had bilateral cerumen impactions that were removed by irrigation here 3 days ago. He states that at first his ears felt good after the irrigation, but since then his right ear has began to hurt, be very tender to touch, and he has decreased hearing in that ear. He states that his left ear feels fine. He denies any fever or chills or other complaints. - Related Data Previous Rx's Medication Instructions Recorded Amoxicillin [Amoxicillin 500mg Tab] 500 mg PO BID 10 Days #20 tab 12/22/21 Carbamide Peroxide [Debrox] 5 drp OT DAILY 5 Days #15 ml 12/22/21 Ciprofloxacin HCl/Dexameth [Cipro 2 drops EAR-RIGHT BID 7 Days #1 ml 12/25/21 0.3%-Dex 0.1% Otic Susp 7.5mL] methylPREDNISolone [Medrol] 4 mg PO DIRECTED 6 Days #21 12/25/21 packet Allergies Allergy/AdvReac Type Severity Reaction Status Date / Time No Known Allergies Allergy Verified 12/25/21 11:18 [facility] History - Hepatitis A Screen Attestation statement:: This patient has been screened for Hepatitis A risk factors. I have reviewed the patient's past medical history: Yes Medical History: Denies:: Cancer, Diabetes Mellitus Type 1, Diabetes Mellitus Type 2, Hypertension, Internal Pacemaker, MRSA, Seizures Other Medical History: Reports: Other. Denies: Blood Transfusion Reaction Laterality Cases: Left: Myringotomy (Ear Tubes) Other Surgeries: Yes: No Previous Surgery. No: Pacemaker Amputation: No Fractures: No - Social History Smoking Status: Current every day smoker Tobacco Type: cigarettes # Packs/Day (cigarettes): 2 #Yrs smoked (if former smoker): 25 Alcohol Intake: never Substance Use Type: denies use Occupational Status: other Housing:
[2021-12-25 11:15] VITALS: BP 127/87; PULSE 89; RESP 16; TEMP 36.8; O2SAT 97; BMI 48.7
[2021-12-25 11:56] VITALS: BP 127/87; PULSE 89; RESP 16; TEMP 36.8
== END 2021-12-25 11:57 | disposition home or self-care (01) ==
PROVIDERS: Emergency Provider Nurse Practitioner Family; PCP Family Medicine
DX: H60.501 Unspecified acute noninfective otitis externa, right ear (principal)
CPT/HCPCS: 96372; 99212; G0463; J0696

== ENCOUNTER 2022-05-22 14:30 | Emergency (ER) | payer OTHER, SELFPAY ==
--- NOTE | 2022-05-22 14:38 | EXP.UTC ---
Discharge Plan Disposition Patient Disposition: Home, Self-Care Condition: Good Prescriptions Prescriptions: New benzonatate [benzonatate] 100 mg capsule 100 mg PO TIDP PRN (Reason: Cough) Qty: 30 0RF amoxicillin-pot clavulanate 875-125 mg Tablet 1 tab PO Q12H Qty: 20 0RF methylprednisolone 4 mg Tablets,Dose Pack 4 mg PO DIRECTED Qty: 21 0RF guaifenesin [Mucinex] 600 mg tablet extended release 12hr 600 - 1,200 mg PO BIDP PRN (Reason: Congestion) Qty: 30 0RF Referrals Follow up/Referrals: Ale Montejo MD [Primary Care Provider] - See instructions Activity Restrictions/Add. Instructions Additional Instructions/Restrictions: Drink plenty of fluids. Take tylenol or ibuprofen for pain or fever. Take the medications as directed. Follow up with your regular doctor. GO TO THE ER FOR ANY WORSENING SYMPTOMS Clinical Impressions Clinical Impression: Sinusitis, Bronchitis Stand Alone Forms Stand Alone Forms: Work/School Release Discharge ED Provider: Perry Womack [facility] General Stated complaint: cough, sore throat Time Seen by Provider: 05/22/22 14:37 History of Present Illness Provider Complaint: He states that for the past 2 days he has had sinus congestion, chills, chest congestion and malaise. Related Data Previous Rx's Medication Instructions Recorded amoxicillin 875 mg-potassium 1 tab PO Q12H #20 tabs 05/22/22 clavulanate 125 mg tablet benzonatate 100 mg capsule 100 mg PO TIDP PRN Cough #30 caps 05/22/22 guaifenesin 600 mg tablet, 600 - 1,200 mg PO BIDP PRN 05/22/22 extended release 12 hr (Mucinex) Congestion #30 tabs methylprednisolone 4 mg tablets in 4 mg PO DIRECTED #21 tabs 05/22/22 a dose pack Allergies Allergy/AdvReac Type Severity Reaction Status Date / Time No Known Allergies Allergy Verified 05/22/22 15:18 [facility] Disclaimer: The information contained in this section may have been updated after the patient was seen, as this information can be updated by other users. Social History Smoking Status: Current every day smoker tobacco type: cigarettes packs per day: 2 second hand exposure: No alcohol intake: never substance use type: denies use current occupational status: other Travel in the last 8 weeks: None household members: significant other housing: house current occupational exposures/hazards: No caffeine: Yes ROS Obtained: Yes All systems reviewed & no additional complaints except as documented Constitutional Constitutional: Reports chills and Reports fever(s) Eyes Eyes: Denies eye discharge ENT Ears, Nose, Mouth, and Throat: Reports as per HPI Cardiovascular Cardiovascular: Denies chest pain Respiratory Respiratory: Denies shortness of breath, Reports chest congestion, Reports cough, Denies stridor and Denies wheezing Gastrointestinal Gastrointestingal: Reports nausea; Denies abdominal pain, constipation, cramping, diarrhea or vomiting Musculoskeletal Musculoskeletal: Denies arthralgias Integumentary/Breasts Skin/Breast: Denies rash Neurologic Neurologic: Denies paresthesias Allergic/Immunologic Allergic/Immunologic: Denies wheezing Physical Exam General General appearance: alert and in no apparent distress Head Head exam: atraumatic, normocephalic and normal inspection Eye Eye exam: Present normal appearance, PERRL and EOMI ENT ENT exam: Present normal exam, normal oropharynx, mucous membranes moist, TM's normal bilaterally and normal external ear exam Neck Neck exam: Present normal inspection, full ROM and trachea midline; Absent meningismus or lymphadenopathy Chest Chest inspection: Present normal inspection and symmetric chest wall rise; Absent tenderness Respiratory Respiratory exam: Present normal lung sounds bilaterally; Absent respiratory distress Cardiovascular Cardiovascular exam: Present regular rate and normal rhythm; Absent JVD Abdo
[2022-05-22 14:50] VITALS: BP 135/76; PULSE 92; RESP 19; TEMP 36.9; O2SAT 94; BMI 51.7
[2022-05-22 14:56] LABS: UTC Strep Screen (Rapid) Negative (Negative)
[2022-05-22 15:41] VITALS: BP 135/76; PULSE 92; RESP 19; TEMP 36.9; O2SAT 94
== END 2022-05-22 15:41 | disposition home or self-care (01) ==
PROVIDERS: Emergency Provider Nurse Practitioner Family; PCP Family Medicine
DX: J40 Bronchitis, not specified as acute or chronic (principal); J32.9 Chronic sinusitis, unspecified
CPT/HCPCS: 87880; 99212; G0463

== ENCOUNTER 2022-05-31 15:45 | Emergency (ER) | payer OTHER, SELFPAY ==
[2022-05-31 15:50] VITALS: BP 157/94; PULSE 86; RESP 18; TEMP 36.7; O2SAT 98; BMI 48.7
--- NOTE | 2022-05-31 16:12 | EXP.UTC ---
Discharge Plan Disposition Patient Disposition: Home, Self-Care Condition: Good Prescriptions Prescriptions: New promethazine-DM 6.25-15 mg/5 mL Syrup 5 ml PO Q6H PRN (Reason: Cough) Qty: 240 0RF azithromycin [Zithromax] 250 mg tablet 250 mg PO UD DOSE PK Qty: 6 0RF Rx Instructions: Take two (2) tablets today, then one (1) tablet days #2 thru #5 prednisone 10 mg tablet 10 mg PO DIRECTED 9 Days Qty: 21 0RF Rx Instructions: Take 4 tablets daily for 3 days, then take 2 tablets daily for 3 days, then take 1 tablet daily for 3 days, then stop. albuterol sulfate [Ventolin HFA] 90 mcg/actuation HFA aerosol inhaler 2 puff inhalation Q6H PRN (Reason: shortness of breath or wheezing) Qty: 6.7 0RF No Action benzonatate [benzonatate] 100 mg capsule 100 mg PO TIDP PRN (Reason: Cough) Qty: 30 0RF amoxicillin-pot clavulanate 875-125 mg Tablet 1 tab PO Q12H Qty: 20 0RF methylprednisolone 4 mg Tablets,Dose Pack 4 mg PO DIRECTED Qty: 21 0RF guaifenesin [Mucinex] 600 mg tablet extended release 12hr 600 - 1,200 mg PO BIDP PRN (Reason: Congestion) Qty: 30 0RF Referrals Follow up/Referrals: Ale Montejo MD [Primary Care Provider] - See instructions Activity Restrictions/Add. Instructions Additional Instructions/Restrictions: Drink plenty of fluids. Take tylenol or ibuprofen for pain or fever. Take the medications as directed. Follow up with your regular doctor. GO TO THE ER FOR ANY WORSENING SYMPTOMS Clinical Impressions Clinical Impression: Bronchitis, Sinusitis Instructions Patient Instructions: Sinusitis, DI for Sinusitis Discharge ED Provider: Perry Womack [facility] [place] HPI General Stated complaint: cough, sinus pressure, congestion Mode of Arrival: Ambulatory Source of Information: Patient Limitations: No Limitations Time Seen by Provider: 05/31/22 15:54 Description of Symptoms (Recalled from Triage Doc. by RN): PATIENT C/O COUGH, CONGESTION, AND LOSS OF VOICE. HE WAS SEEN AT [facility] LAST WEEK AND GIVEN ANTIBIOTICS AND STEROIDS, BUT STATES HE DOES NOT FEEL ANY BETTER HEENT Symptoms (Recalled from RN notes): Yes Resp Symptoms (Recalled from RN notes): Yes Skin Symptoms (Recalled from RN notes): No MS Symptoms (Recalled from RN notes): No Functional Status (Recalled from RN notes): WNL History of Present Illness Provider Complaint: He is here with continued complaints of sinus and chest congestion. He was seen here on 05/22. He states that since then he has not felt much better. Related Data Previous Rx's Medication Instructions Recorded amoxicillin 875 mg-potassium 1 tab PO Q12H #20 tabs 05/22/22 clavulanate 125 mg tablet benzonatate 100 mg capsule 100 mg PO TIDP PRN Cough #30 caps 05/22/22 guaifenesin 600 mg tablet, 600 - 1,200 mg PO BIDP PRN 05/22/22 extended release 12 hr (Mucinex) Congestion #30 tabs methylprednisolone 4 mg tablets in 4 mg PO DIRECTED #21 tabs 05/22/22 a dose pack albuterol sulfate 90 mcg/actuation 2 puff inhalation Q6H PRN 05/31/22 aerosol inhaler (Ventolin HFA) shortness of breath or wheezing #6.7 grams azithromycin 250 mg tablet 250 mg PO UD DOSE PK #6 tabs 05/31/22 (Zithromax) prednisone 10 mg tablet 10 mg PO DIRECTED 9 days #21 05/31/22 tabs promethazine-DM 6.25 mg-15 mg/5 mL 5 ml PO Q6H PRN Cough #240 mL 05/31/22 oral syrup Allergies Allergy/AdvReac Type Severity Reaction Status Date / Time No Known Allergies Allergy Verified 05/22/22 15:18 Worker's Comp Is this a Worker's Comp case?: No [facility] Disclaimer: The information contained in this section may have been updated after the patient was seen, as this information can be updated by other users. Surgical History History of tympanostomy tube placement Social History Smoking Status: Current every day smoker tobacco type: cigarettes packs per d
--- NOTE | 2022-05-31 16:15 | XR_ITS ---
PROCEDURE INFORMATION: Exam: XR Chest Exam date and time: 05/31/2022 4:25 PM Age: 41 years old Clinical indication: Cough; Additional info: Cough, congestion TECHNIQUE: Imaging protocol: Radiologic exam of the chest. Views: 2 views. COMPARISON: CR [id number] VIEWS 03/19/2017 8:08 PM FINDINGS: Lungs: Lungs are clear. No consolidation or pulmonary edema. Pleural spaces: No pleural effusion. No pneumothorax. Heart/Mediastinum: Cardiomediastinal silhouette is normal. Bones/joints: No acute abnormality. IMPRESSION: No acute cardiopulmonary disease.
[2022-05-31 17:02] VITALS: BP 157/94; PULSE 86; RESP 18; TEMP 36.7; O2SAT 98
== END 2022-05-31 17:13 | disposition home or self-care (01) ==
PROVIDERS: Emergency Provider Nurse Practitioner Family; PCP Family Medicine
DX: J40 Bronchitis, not specified as acute or chronic (principal); F32.9 Major depressive disorder, single episode, unspecified
CPT/HCPCS: 71046; 99212; 99213; G0463

== ENCOUNTER 2022-06-27 18:10 | Emergency (ER) | payer OTHER, SELFPAY ==
[2022-06-27 18:47] VITALS: BP 143/85; PULSE 105; RESP 18; TEMP 38.1; O2SAT 97; BMI 49.4
[2022-06-27 18:50] LABS: UTC Strep Screen (Rapid) Positive (Negative)
--- NOTE | 2022-06-27 19:15 | EXP.UTC ---
Discharge Plan Disposition Patient Disposition: Home, Self-Care Condition: Good Prescriptions Prescriptions: New penicillin V potassium 500 mg tablet 500 mg PO BID 10 Days Qty: 20 0RF No Action benzonatate [benzonatate] 100 mg capsule 100 mg PO TIDP PRN (Reason: Cough) Qty: 30 0RF amoxicillin-pot clavulanate 875-125 mg Tablet 1 tab PO Q12H Qty: 20 0RF methylprednisolone 4 mg Tablets,Dose Pack 4 mg PO DIRECTED Qty: 21 0RF guaifenesin [Mucinex] 600 mg tablet extended release 12hr 600 - 1,200 mg PO BIDP PRN (Reason: Congestion) Qty: 30 0RF promethazine-DM 6.25-15 mg/5 mL Syrup 5 ml PO Q6H PRN (Reason: Cough) Qty: 240 0RF azithromycin [Zithromax] 250 mg tablet 250 mg PO UD DOSE PK Qty: 6 0RF Rx Instructions: Take two (2) tablets today, then one (1) tablet days #2 thru #5 prednisone 10 mg tablet 10 mg PO DIRECTED 9 Days Qty: 21 0RF Rx Instructions: Take 4 tablets daily for 3 days, then take 2 tablets daily for 3 days, then take 1 tablet daily for 3 days, then stop. albuterol sulfate [Ventolin HFA] 90 mcg/actuation HFA aerosol inhaler 2 puff inhalation Q6H PRN (Reason: shortness of breath or wheezing) Qty: 6.7 0RF Referrals Follow up/Referrals: Ale Montejo MD [Primary Care Provider] - See instructions Activity Restrictions/Add. Instructions Additional Instructions/Restrictions: *Monitor Temp, Over the counter Motrin or Tylenol as directed/as needed Tylenol every 4 hours and Motrin every 6 hours (as long as your family doctor has told you that you can take it) for fever or pain. and straight to ER if unable to lower temp less than 101.0 after medication given *Warm salt water gargles may help to soothe the throat *Throat Lozenges? *Warm fluids like tea with honey may help to soothe the throat? *Sleep elevated *Humidifier/Vaporizer *If you did not take Penicillin shot or was unable to, start taking antibiotic immediately and make sure that you take it for the FULL length of time although you should start to feel better in 24-48 hours *change toothbrush and toothpaste 24-48 hours after starting to take antibiotics so you do not reinfect yourself Monitor Temp. Tylenol and/or Ibuprofen as needed. ER if fever is no less than 101 despite alternating Tylenol and Ibuprofen * Encourage fluids, water, Gatorade, powerade, pedialyte if /toddler/or child *Cold fluids, popsicles and ice cream may feel good on his throat Follow up IMMEDIATELY for new or worsening symptoms or no Noticeable improvement over the next 48-72 hours. 911 for difficulty breathing or swallowing Clinical Impressions Clinical Impression: Strep throat Stand Alone Forms Stand Alone Forms: Work/School Release Instructions Patient Instructions: Strep Throat, DI for Strep Throat Discharge ED [place] [facility] [place] General Stated complaint: sore throat Mode of Arrival: Ambulatory Source of Information: Patient Limitations: No Limitations Time Seen by Provider: 06/27/22 19:15 Description of Symptoms (Recalled from Triage Doc. by RN): c/o sore throat and cant swallow since yesterday HEENT Symptoms (Recalled from RN notes): Yes Resp Symptoms (Recalled from RN notes): No Skin Symptoms (Recalled from RN notes): No MS Symptoms (Recalled from RN notes): No Functional Status (Recalled from RN notes): na History of Present Illness Provider Complaint: Patient states that he has been having sore throat since yesterday and feels like his throat is almost swollen shut States that it hurts when he swallows and earlier when he was trying to eat it hurt States that this evening he was feeling worse Related Data Previous Rx's Medication Instructions Recorded amoxicillin 875 mg-potassium 1 tab PO Q12H #20 tabs 05/22/22 clavulanate 125 mg tablet benzonatate 100 mg capsule 100 mg PO TIDP PRN Cough #30 caps 05/22/22 guaifenesin 600 mg tablet, 600 - 1,200 mg PO BID
[2022-06-27 19:35] VITALS: BP 143/85; PULSE 105; RESP 19; TEMP 38.1; O2SAT 97
== END 2022-06-27 19:37 | disposition home or self-care (01) ==
PROVIDERS: Emergency Provider Nurse Practitioner; PCP Family Medicine
DX: J02.0 Streptococcal pharyngitis (principal)
CPT/HCPCS: 87880; 96372; 99212; 99213; G0463

== ENCOUNTER 2022-07-19 12:11 | Emergency (ER) | payer OTHER, SELFPAY ==
[2022-07-19 12:20] VITALS: BP 146/84; PULSE 90; RESP 20; TEMP 36.8; O2SAT 96; BMI 49.3
--- NOTE | 2022-07-19 12:38 | EXP.UTC ---
Discharge Plan Disposition Patient Disposition: Home, Self-Care Condition: Good Prescriptions Prescriptions: New amoxicillin [amoxicillin] 500 mg tablet 500 mg PO TID 10 Days Qty: 30 0RF methylprednisolone 4 mg Tablets,Dose Pack 4 mg PO DIRECTED Qty: 21 0RF Referrals Follow up/Referrals: Ale Montejo MD [Primary Care Provider] - See instructions Regino Hough MD [Physician] - See instructions Activity Restrictions/Add. Instructions Additional Instructions/Restrictions: Drink plenty of fluids. Take tylenol or ibuprofen for pain or fever. Take the medications as directed. Follow up with your regular doctor. GO TO THE ER FOR ANY WORSENING SYMPTOMS Don't start the oral steroids until tomorrow, since you had the shot here today. Clinical Impressions Clinical Impression: Uvulitis Instructions Patient Instructions: DI for Uvulitis Discharge ED Provider: Perry Womack [facility] General Stated complaint: Sore throat Mode of Arrival: Ambulatory Source of Information: Patient Limitations: No Limitations Time Seen by Provider: 07/19/22 12:38 Description of Symptoms (Recalled from Triage Doc. by RN): PATIENT C/O SWOLLEN UVULA AND SORE THROAT. REPORTS BEING TREATED FOR STREP 2 WEEKS AGO HEENT Symptoms (Recalled from RN notes): Yes Resp Symptoms (Recalled from RN notes): No Skin Symptoms (Recalled from RN notes): No MS Symptoms (Recalled from RN notes): No Functional Status (Recalled from RN notes): WNL History of Present Illness Provider Complaint: He states that he has a very swollen uvula for the past 2 days. He has a very sore throat also. In the past, he has had uvulitis, and he states that that is what's going on now. He denies any fever or chills. Related Data Previous Rx's Medication Instructions Recorded amoxicillin 500 mg tablet 500 mg PO TID 10 days #30 tabs 07/19/22 methylprednisolone 4 mg tablets in 4 mg PO DIRECTED #21 tabs 07/19/22 a dose pack Allergies Allergy/AdvReac Type Severity Reaction Status Date / Time No Known Allergies Allergy Verified 05/22/22 15:18 Worker's Comp Is this a Worker's Comp case?: No [facility] Disclaimer: The information contained in this section may have been updated after the patient was seen, as this information can be updated by other users. Surgical History History of tympanostomy tube placement Social History Smoking Status: Current every day smoker tobacco type: cigarettes packs per day: 2 second hand exposure: No alcohol intake: never substance use type: denies use current occupational status: other Travel in the last 8 weeks: None household members: significant other housing: house current occupational exposures/hazards: No caffeine: Yes ROS Obtained: Yes All systems reviewed & no additional complaints except as documented Constitutional Constitutional: Denies chills and Denies fever(s) Eyes Eyes: Denies eye discharge ENT Ears, Nose, Mouth, and Throat: Reports as per HPI, Denies dizziness, Denies otalgia and Reports sore throat Cardiovascular Cardiovascular: Denies chest pain Respiratory Respiratory: Denies shortness of breath, Denies chest congestion, Denies cough, Denies stridor and Denies wheezing Gastrointestinal Gastrointestingal: Denies nausea or vomiting Musculoskeletal Musculoskeletal: Reports system reviewed and no additional complaints, except as documented and Denies arthralgias Integumentary/Breasts Skin/Breast: Denies rash Neurologic Neurologic: Denies dizziness and Denies paresthesias Allergic/Immunologic Allergic/Immunologic: Denies wheezing Physical Exam General General appearance: alert and in no apparent distress Head Head exam: atraumatic, normocephalic and normal inspection Eye Eye exam: Present normal appearance, PERRL and EOMI ENT ENT exam: Present mucous membr
[2022-07-19 13:01] VITALS: BP 146/84; PULSE 90; RESP 20; TEMP 36.8; O2SAT 96
== END 2022-07-19 13:12 | disposition home or self-care (01) ==
PROVIDERS: Emergency Provider Nurse Practitioner Family; PCP Family Medicine
DX: K12.2 Cellulitis and abscess of mouth (principal)
CPT/HCPCS: 99212; 99213; G0463

== ENCOUNTER 2022-10-17 16:09 | Emergency (ER) | payer OTHER, SELFPAY ==
[2022-10-17 16:15] VITALS: BP 157/103; PULSE 96; RESP 22; TEMP 36.8; O2SAT 96; BMI 48.7
[2022-10-17 16:25] LABS: Apearance,Urine Clear (Clear); Color,Urine Dark Yellow (Yellow); PH,Urine 5.5 (5.0-8.5)
[2022-10-17 16:26] LABS: Bilirubin,Urine Negative (Negative); Blood, Urine Negative (Negative); Glucose,Urine (UA) 500 (Negative); Ketones,Urine Negative (Negative); Protein,Urine 1+ (Negative); UTC Leukocyte Esterase,Urine Negative (Negative); UTC Nitrate,Urine Negative (Negative); Urobilinogen,Urine 0.2 EU/dl (0.2)
--- NOTE | 2022-10-17 16:31 | EXP.UTC ---
Discharge Plan Disposition Patient Disposition: Home, Self-Care Condition: Good Prescriptions Prescriptions: New cyclobenzaprine 10 mg tablet 10 mg PO TID PRN (Reason: muscle spasm) Qty: 15 0RF Referrals Follow up/Referrals: Ale Montejo MD [Primary Care Provider] - See instructions Activity Restrictions/Add. Instructions Additional Instructions/Restrictions: *Ibuprofen graciela 6 hours with meal as needed for pain/inflammation *Not additional anti-inflammatory like motrin, aleve, advil with the above amount of ibuprofen. You can still take Tylenol every 4 hours as needed if you need something else for pain *Ice 20 minutes every 2 hours for the first 48 hours after the initial injury followed by moist heat every 20 minutes 3-4 times a day to affected area *Muscle relaxer every 8 hours as needed for muscle spasms but remember, it WILL cause drowsiness You cannot take it and drive, operate machinery or care for small children. *Keep this area active, no movement leads to more stiffness, However take it easy and avoid heavy lifting pushing or pulling *Follow up with you family doctor if no improvement for further treatment Make sure to follow up with your Family Doctor for further testing and evaluation as discussed [facility] the [facility] Clinical Impressions Clinical Impression: Low back strain Instructions Patient Instructions: DI for Muscle Spasm, Cyclobenzaprine Discharge ED Provider: Yaneth Ward [facility] [place] HPI General Stated complaint: left side pain, unknown origin Mode of Arrival: Ambulatory Source of Information: Patient Limitations: No Limitations Time Seen by Provider: 10/17/22 16:31 Description of Symptoms (Recalled from Triage Doc. by RN): PATIENT C/O PAIN TO LEFT FLANK AREA THAT STARTED LAST FRIDAY BUT HAS GRADUALLY GOTTEN WORSE. 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 States that when he moves certain ways feels like his left lower back seizes up and shoot pain up his back Denies falling Denies known injury Denies urinary problems Denies loss of control of bowel or bladder Related Data Previous Rx's Medication Instructions Recorded cyclobenzaprine 10 mg tablet 10 mg PO TID PRN muscle spasm #15 10/17/22 tabs Allergies Allergy/AdvReac Type Severity Reaction Status Date / Time No Known Allergies Allergy Verified 05/22/22 15:18 Worker's Comp Is this a Worker's Comp case?: No [facility] Disclaimer: The information contained in this section may have been updated after the patient was seen, as this information can be updated by other users. Surgical History History of tympanostomy tube placement Social History Smoking Status: Current every day smoker tobacco type: cigarettes packs per day: 2 second hand exposure: No alcohol intake: never substance use type: denies use current occupational status: other Travel in the last 8 weeks: None household members: significant other housing: house current occupational exposures/hazards: No caffeine: Yes ROS Obtained: Yes All systems reviewed & no additional complaints except as documented and Yes Systems reviewed as appropriate & no additional complaints except as documented Constitutional Constitutional: Reports system reviewed and no additional complaints, except as documented, Reports as
[2022-10-17 16:50] VITALS: BP 157/103; PULSE 96; RESP 22; TEMP 36.8; O2SAT 96
== END 2022-10-17 16:52 | disposition home or self-care (01) ==
PROVIDERS: Emergency Provider Nurse Practitioner; PCP Family Medicine
DX: S39.012A Strain of muscle, fascia and tendon of lower back, initial encounter (principal); R03.0 Elevated blood-pressure reading, without diagnosis of hypertension; F17.210 Nicotine dependence, cigarettes, uncomplicated; X50.9XXA Other and unspecified overexertion or strenuous movements or postures, initial encounter
CPT/HCPCS: 81003; 99212; 99214; G0463

== ENCOUNTER 2023-05-24 12:33 | Emergency (ER) | payer OTHER, SELFPAY ==
[2023-05-24 13:14] VITALS: BP 147/88; PULSE 85; RESP 19; TEMP 36.5; O2SAT 99; BMI 48.2
--- NOTE | 2023-05-24 13:32 | ED_ITS ---
Discharge Plan Disposition Patient Disposition: Home, Self-Care Condition: Good Prescriptions Prescriptions: New azithromycin [Zithromax Z-Ismael] 250 mg tablet See Rx Instructions .ROUTE .COMPLEX 5 Days Qty: 6 0RF Rx Instructions: For 250 mg dose pack: take 500 mg today (day 1), then 250 mg for 4 days (days 2-5) benzonatate 100 mg capsule 100 mg PO TID PRN (Reason: cough) Qty: 30 0RF methylprednisolone [Medrol (Ismael)] 4 mg tablets,dose pack See Rx Instructions .Route .COMPLEX 6 Days Qty: 21 0RF Rx Instructions: taper pack; guaifenesin [Mucinex] 600 mg tablet extended release 12hr 1,200 mg PO BID PRN (Reason: cough) Qty: 20 0RF No Action cyclobenzaprine 10 mg tablet 10 mg PO TID PRN (Reason: muscle spasm) Qty: 15 0RF Referrals Follow up/Referrals: Ale Montejo MD [Primary Care Provider] - See instructions Activity Restrictions/Add. Instructions Additional Instructions/Restrictions: * Start antibiotic today. Be sure to complete entire prescription even if feeling better * Monitor temp. Tylenol every 4 hours as needed and / or ibuprofen every 6 hours as needed ( As long as your primary care physician has told you that it ok to take both. For fever/aches/pains ER if no less than 101 despite Tylenol or Motrin * Humidifier/vaporizer or hot steamy shower * Mucinex during the day for your cough and cough suppressant only at night. Be sure to drink lots of water. *Tessalon Perles will not cause drowsiness but use at bedtime to help stop cough so that you may get some rest. *Start steroid today. Helps with inflammation therefore, cough and wheezing. Follow directions on the package. Reviewed side effects. Patient reports taking them before. Follow up IMMEDIATELY for new or worsening of symptoms OR no noticeable improvement over the next 48-72 hours. 911 immediately for any life threatening symptoms such as chest pain or difficulty breathing Clinical Impressions Clinical Impression: Bronchitis, Sinusitis Instructions Patient Instructions: DI for Sinusitis, Sinusitis, Acute Bronchitis [place] [facility] [place] General Stated complaint: cough, congestion Time Seen by Provider: 05/24/23 13:32 Description of Symptoms (Recalled from Triage Doc. by RN): PT C/O COUGH AND CHEST CONGESTION THAT STARTED 2 DAYS AGO HEENT Symptoms (Recalled from RN notes): No Resp Symptoms (Recalled from RN notes): Yes Skin Symptoms (Recalled from RN notes): No MS Symptoms (Recalled from RN notes): No Functional Status (Recalled from RN notes): WNL History of Present Illness Provider Complaint: Patient states that he has been having sinus congestion and pressure for several days and for the last couple of days feels like it is trying to move into his chest States that he has been having some cough and chest congestion and wanted to come in and get something before it got too bad Related Data Previous Rx's Medication Instructions Recorded cyclobenzaprine 10 mg tablet 10 mg PO TID PRN muscle spasm #15 10/17/22 tabs azithromycin 250 mg tablet See Rx Instructions PO .COMPLEX 5 05/24/23 (Zithromax Z-Ismael) days #6 tabs benzonatate 100 mg capsule 100 mg PO TID PRN cough #30 caps 05/24/23 guaifenesin 600 mg tablet, 1,200 mg PO BID PRN cough #20 tabs 05/24/23 extended release 12 hr (Mucinex) methylprednisolone 4 mg tablets in See Rx Instructions .Route 05/24/23 a dose pack (Medrol (Ismael)) .COMPLEX 6 days #21 tabs Allergies Allergy/AdvReac Type Severity Reaction Status Date / Time No Known Allergies Allergy Verified 05/22/22 15:18 Worker's Comp Is this a Worker's Comp case?: No [facility] Disclaimer: The information contained in this section may have been updated after the patient was seen, as this information can be updated by other users. Surgical History History of tympanostomy tube placement Social History Smoking Status: Current every day smoker tobacco type: cigarettes packs per day: 2 second hand exposure: No alcohol intake: never substance use type: denies use current occupational status: other Travel in the last 8 weeks: None household members: significant other housing: house current occupational exposures/hazards: No caffeine: Yes ROS Obtained: Yes All systems reviewed & no additional complaints except as documented and Yes Systems reviewed as appropriate & no additional complaints except as documented Constitutional Constitutional: Reports system reviewed and no additional complaints, except as documented and Reports as per HPI ENT Ears, Nose, Mouth, and Throat: Reports system reviewed and no additional complaints, except as documented, Reports as per HPI, Reports sinus pain and Reports sinus pressure Cardiovascular Cardiovascular: Reports system reviewed and no additional complaints, except as documented and Reports as per HPI Respiratory Respiratory: Reports system reviewed and no additional complaints, except as documented, Reports as per HPI, Denies shortness of breath, Reports chest congestion and Reports cough Gastrointestinal Gastrointestingal: Reports system reviewed and no additional complaints, except as documented and as per HPI Musculoskeletal Musculoskeletal: Reports system reviewed and no additional complaints, except as documented and Reports as per HPI Physical Exam General General appearance: alert and in no apparent distress ENT ENT exam: Present mucous membranes moist Expanded ENT Exam Nose exam: Present sinus tenderness Throat exam: Present other (Pharyngeal erythema noted with PND) Respiratory Respiratory exam: Present normal lung sounds bilaterally; Absent respiratory distress or wheezes Cardiovascular Cardiovascular exam: Present regular rate, normal rhythm and normal heart sounds Abdominal Exam Abdominal exam: Present soft and normal bowel sounds; Absent distention or tenderness Neurological Exam Neurological exam: Present alert, oriented X3 and normal gait Medical Decision Making Mark Inquiry Pt receiving controlled substance: No Mark was queried for this patient: No Vital Signs: 05/24/23 13:14 Temperature 97.7 F Temperature Source Oral Pulse Rate [Right Brachial] 85 Respiratory Rate 19 Blood Pressure [Right Arm] 147/88 H Blood Pressure Mean [Right Arm] 107 Blood Pressure Source [Right Arm] Automatic Cuff Blood Pressure Position [Right Arm] Sitting 02 Sat by Pulse Oximetry 99 Medical Decision Narrative: Patient states that he is a diabetic but his blood sugar is well controlled with diet and has taken steriods in the past without complications
[2023-05-24 13:50] VITALS: BP 147/88; PULSE 85; RESP 19; TEMP 36.5; O2SAT 99
== END 2023-05-24 13:54 | disposition home or self-care (01) ==
PROVIDERS: Emergency Provider Nurse Practitioner; PCP Family Medicine
DX: J20.9 Acute bronchitis, unspecified (principal); J01.90 Acute sinusitis, unspecified; R05.9 Cough, unspecified; R09.81 Nasal congestion; R09.89 Other specified symptoms and signs involving the circulatory and respiratory systems; F17.210 Nicotine dependence, cigarettes, uncomplicated
CPT/HCPCS: 99212; 99214; G0463

== ENCOUNTER 2023-08-27 15:20 | Outpatient (CLI) | payer SELFPAY | END 2023-08-27 18:30 | disposition home or self-care (01) | PROVIDERS: PCP Family Medicine; Visit Provider Nurse Practitioner Family | DX: Z02.4 Encounter for examination for driving license (principal) ==

== ENCOUNTER 2023-12-09 13:06 | Emergency (ER) | payer OTHER, SELFPAY ==
[2023-12-09 14:25] VITALS: BP 126/88; PULSE 77; RESP 20; TEMP 36.7; O2SAT 97; BMI 42.8
--- NOTE | 2023-12-09 14:32 | ED_ITS ---
Discharge Plan Disposition Patient Disposition: Home, Self-Care Condition: Good Prescriptions Prescriptions: New ondansetron 4 mg Tablet,Disintegrating 4 mg PO Q8H PRN (Reason: Nausea) Qty: 12 0RF No Action azithromycin [Zithromax Z-Ismael] 250 mg tablet See Rx Instructions .ROUTE .COMPLEX 5 Days Qty: 6 0RF Rx Instructions: For 250 mg dose pack: take 500 mg today (day 1), then 250 mg for 4 days (days 2-5) benzonatate 100 mg capsule 100 mg PO TID PRN (Reason: cough) Qty: 30 0RF methylprednisolone [Medrol (Ismael)] 4 mg tablets,dose pack See Rx Instructions .Route .COMPLEX 6 Days Qty: 21 0RF Rx Instructions: taper pack; guaifenesin [Mucinex] 600 mg tablet extended release 12hr 1,200 mg PO BID PRN (Reason: cough) Qty: 20 0RF cyclobenzaprine 10 mg tablet 10 mg PO TID PRN (Reason: muscle spasm) Qty: 15 0RF Referrals Follow up/Referrals: Ale Montejo MD [Primary Care Provider] - See instructions Activity Restrictions/Add. Instructions Additional Instructions/Restrictions: Drink plenty of fluids. Take tylenol for pain or fever. Take the medications as directed. Follow up with your regular doctor. GO TO THE ER FOR ANY WORSENING SYMPTOMS Clinical Impressions Clinical Impression: Gastroenteritis Instructions Patient Instructions: DI for Viral Gastroenteritis -- Adult, Viral Gastroenteritis, Ondansetron Discharge ED Provider: Perry Womack [facility] General Stated complaint: vomiting, abd pain Time Seen by Provider: 12/09/23 14:32 History of Present Illness Provider Complaint: He states that he started having nausea/vomiting/diarrhea yesterday morning. He has had abdominal cramping also. He denies abdominal pain. He denies fever. Related Data Previous Rx's Medication Instructions Recorded cyclobenzaprine 10 mg tablet 10 mg PO TID PRN muscle spasm #15 10/17/22 tabs azithromycin 250 mg tablet See Rx Instructions PO .COMPLEX 5 05/24/23 (Zithromax Z-Ismael) days #6 tabs benzonatate 100 mg capsule 100 mg PO TID PRN cough #30 caps 05/24/23 guaifenesin 600 mg tablet, 1,200 mg (2 x 600 mg) PO BID PRN 05/24/23 extended release 12 hr (Mucinex) cough #20 tabs methylprednisolone 4 mg tablets in See Rx Instructions .Route 05/24/23 a dose pack (Medrol (Ismael)) .COMPLEX 6 days #21 tabs ondansetron 4 mg disintegrating 4 mg PO Q8H PRN Nausea #12 tabs 12/09/23 tablet Allergies Allergy/AdvReac Type Severity Reaction Status Date / Time No Known Allergies Allergy Verified 05/22/22 15:18 [facility] [place] Disclaimer: The information contained in this section may have been updated after the patient was seen, as this information can be updated by other users. Surgical History History of tympanostomy tube placement Social History Smoking Status: Current every day smoker tobacco type: cigarettes packs per day: 2 second hand exposure: No alcohol intake: never substance use type: denies use current occupational status: other Travel in the last 8 weeks: None household members: significant other housing: house current occupational exposures/hazards: No caffeine: Yes ROS Obtained: Yes All systems reviewed & no additional complaints except as documented Constitutional Constitutional: Denies chills, Denies fever(s) and Reports poor appetite ENT Ears, Nose, Mouth, and Throat: Denies dizziness and Denies sore throat Cardiovascular Cardiovascular: Denies dyspnea Respiratory Respiratory: Denies chest congestion, Denies cough and Denies dyspnea Gastrointestinal Gastrointestingal: Reports as per HPI; Denies abdominal pain Musculoskeletal Musculoskeletal: Denies arthralgias Integumentary/Breasts Skin/Breast: Denies rash Neurologic Neurologic: Denies dizziness Physical Exam General General appearance: alert and in no apparent distress Head Head exam: atraumatic and normocephalic Eye Eye exam: Present normal appearance, PERRL and EOMI ENT ENT exam: Present normal exam, normal oropharynx, mucous membranes moist, TM's normal bilaterally and normal external ear exam Neck Neck exam: Present normal inspection, full ROM and trachea midline; Absent tenderness, meningismus or lymphadenopathy Chest Chest inspection: Present normal inspection and symmetric chest wall rise; Absent tenderness, rash or abscess Respiratory Respiratory exam: Present normal lung sounds bilaterally; Absent respiratory distress, wheezes or stridor Cardiovascular Cardiovascular exam: Present regular rate and normal rhythm; Absent irregular rhythm, systolic murmur, diastolic murmur or JVD Abdominal Exam Abdominal exam: Present soft and hyperactive bowel sounds; Absent distention, tenderness, guarding, rebound, rigidity, psoas sign, obturator sign, heel tap sign, Braga's sign, Rovsing's sign or tenderness at McBurney's Point Extremities Exam Extremities exam: Present normal inspection and full ROM; Absent tenderness Back Exam Back exam: Present normal inspection and full ROM; Absent tenderness, CVA tenderness (R) or CVA tenderness (L) Neurological Exam Neurological exam: Present alert, oriented X3 and CN II-XII intact Psychiatric Psychiatric exam: Present normal affect and normal mood Skin Skin exam: Present warm, dry, intact and normal color Lymphatic Lymphatic Findings: no adenopathy Medical Decision Making Medical Records Medical records reviewed: No I reviewed the patient's medical records. Mrak Inquiry Pt receiving controlled substance: No
[2023-12-09 14:40] VITALS: BP 126/88; PULSE 77; RESP 20; TEMP 36.7; O2SAT 97
== END 2023-12-09 14:46 | disposition home or self-care (01) ==
PROVIDERS: Emergency Provider Nurse Practitioner Family; PCP Family Medicine
DX: K52.9 Noninfective gastroenteritis and colitis, unspecified (principal); R10.819 Abdominal tenderness, unspecified site; R11.2 Nausea with vomiting, unspecified; R25.2 Cramp and spasm
CPT/HCPCS: 99212; 99214; G0463

== ENCOUNTER 2024-03-08 20:53 | Emergency (ER) | payer OTHER, SELFPAY ==
[2024-03-08 20:53] VITALS: BP 133/91; PULSE 99; RESP 16; TEMP 36.8; O2SAT 95; BMI 45.0
--- NOTE | 2024-03-08 21:09 | [facility].EDGENADL ---
Discharge Plan Disposition Patient Disposition: Home, Self-Care Condition: Good Prescriptions Prescriptions: New lidocaine 5 % adhesive patch,medicated 1 patch topical DAILY PRN (Reason: pain) Qty: 30 0RF Rx Instructions: leave on most painful area for up to 12 hrs No Action azithromycin [Zithromax Z-Ismael] 250 mg tablet See Rx Instructions .ROUTE .COMPLEX 5 Days Qty: 6 0RF Rx Instructions: For 250 mg dose pack: take 500 mg today (day 1), then 250 mg for 4 days (days 2-5) benzonatate 100 mg capsule 100 mg PO TID PRN (Reason: cough) Qty: 30 0RF methylprednisolone [Medrol (Ismael)] 4 mg tablets,dose pack See Rx Instructions .Route .COMPLEX 6 Days Qty: 21 0RF Rx Instructions: taper pack; guaifenesin [Mucinex] 600 mg tablet extended release 12hr 1,200 mg PO BID PRN (Reason: cough) Qty: 20 0RF ondansetron 4 mg Tablet,Disintegrating 4 mg PO Q8H PRN (Reason: Nausea) Qty: 12 0RF cyclobenzaprine 10 mg tablet 10 mg PO TID PRN (Reason: muscle spasm) Qty: 15 0RF Referrals Follow up/Referrals: Ale Montejo MD [Primary Care Provider] - See instructions Activity Restrictions/Add. Instructions Additional Instructions/Restrictions: Please take Tylenol and Motrin every 4 hours as needed for symptoms. Please no lifting over 20 pounds for at least 48 hours to give your abdominal wall time to heal. If your symptoms persist or worsen follow-up with your PCP or return to the ER as needed Clinical Impressions Clinical Impression: Abdominal wall strain Qualifiers: Encounter type: initial encounter Qualified Code(s): S39.011A - Strain of muscle, fascia and tendon of abdomen, initial encounter Stand Alone Forms Stand Alone Forms: Work/School Release Instructions Patient Instructions: DI for Abdominal Muscle Strain Print Language Print Language: Ethiopian Discharge ED Provider: Mane Magdaleno General Adult HPI <DEVYN Bonner - Last Filed: 03/08/24 23:01> General Chief complaint: Abdominal Pain Stated complaint: abd pain and burning Time Seen by Provider: 03/08/24 21:09 History of Present Illness HPI narrative: Patient presents for evaluation of acute abdominal pain. Patient states that he was utilizing a spare tire to try and knock lose a frozen tire on a truck. He was swinging [id number] trying to use the tires of battering abdifatah and felt a tearing sensation in his anterior baltazar wall. He reports that it anderson but has no cardiac chest pain shortness of breath fever chills hemoptysis hematochezia melena nausea vomiting or diarrhea. Related Data Previous Rx's ?Medication ?Instructions ?Recorded cyclobenzaprine 10 mg tablet 10 mg PO TID PRN muscle spasm #15 10/17/22 tabs azithromycin 250 mg tablet See Rx Instructions PO .COMPLEX 5 05/24/23 (Zithromax Z-Ismael) days #6 tabs benzonatate 100 mg capsule 100 mg PO TID PRN cough #30 caps 05/24/23 guaifenesin 600 mg tablet, 1,200 mg (2 x 600 mg) PO BID PRN 05/24/23 extended release 12 hr (Mucinex) cough #20 tabs methylprednisolone 4 mg tablets in See Rx Instructions .Route 05/24/23 a dose pack (Medrol (Ismael)) .COMPLEX 6 days #21 tabs ondansetron 4 mg disintegrating 4 mg PO Q8H PRN Nausea #12 tabs 12/09/23 tablet lidocaine 5 % topical patch 1 patch topical DAILY PRN pain #30 03/08/24 ea Allergies Allergy/AdvReac Type Severity Reaction Status Date / Time No Known Allergies Allergy Verified 05/22/22 15:18 [facility] <DEVYN Bonner - Last Filed: 03/08/24 23:01> [facility] Disclaimer: The information contained in this section may have been updated after the patient was seen, as this information can be updated by other users. Surgical History History of tympanostomy tube placement Social History Smoking Status: Current every day smoker tobacco type: cigarettes packs per day: 2 second hand exposure: No alcohol intake: never substance use type: denies use current occupational status: other Travel in the last 8 weeks: None household members: significant other housing: house current occupational exposures/hazards: No caffeine: Yes Other Medical History Have you received the Flu Vaccine for this season: No Have you received the Pneumonia Vaccine: No <DEVYN Bonner - Last Filed: 03/08/24 23:01> ROS Obtained: Yes Systems reviewed as appropriate & no additional complaints except as documented Physical Exam <DEVYN Bonner - Last Filed: 03/08/24 23:01> General General appearance: alert and in no apparent distress Respiratory Respiratory exam: Present normal lung sounds bilaterally Cardiovascular Cardiovascular exam: Present regular rate Neurological Exam Neurological exam: Present alert and oriented X3 Medical Decision Making <DEVYN Bonner - Last Filed: 03/08/24 23:01> Medical Records Medical records reviewed: Yes I reviewed the patient's medical records. Screening: Per USPSTF and CDC recommendations, given the prevalence of disease in our region, it is our hospital?s policy to screen for HIV and viral Hepatitis for all patients aged 18 and over and those with ongoing risk factors. Mark Inquiry Pt receiving controlled substance: No Vital Signs: 03/08/24 20:53 03/08/24 22:00 03/08/24 22:30 Temperature 98.2 F Temperature Source Oral Pulse Rate 87 88 Pulse Rate [Left] 99 H Respiratory Rate 16 Blood Pressure 130/61 130/68 Blood Pressure [Right Arm] 133/91 H Blood Pressure Mean [Right Arm] 105 Blood Pressure Source 02 Sat by Pulse Oximetry 95 95 96 Oxygen Delivery Method Room Air Room Air 03/08/24 23:00 03/08/24 23:30 03/08/24 23:53 Temperature 98.2 F Temperature Source Oral Pulse Rate 87 80 81 Pulse Rate [Left] Respiratory Rate 16 Blood Pressure 91/52 L 82/46 L 102/56 L Blood Pressure [Right Arm] Blood Pressure Mean [Right Arm] Blood Pressure Source Automatic Cuff 02 Sat by Pulse Oximetry 96 95 Oxygen Delivery Method Room Air Room Air Room Air Lab Data Lab results reviewed: Yes I reviewed the patient's lab results. Lab Results 03/08/24 21:33: WBC 10.8, RBC 5.33, Hgb 15.0, Hct 44.2, MCV 83.0, MCH 28.2, MCHC 34.0, RDW 13.9, Plt Count 218, MPV 8.5, Neut % (Auto) 67.6, Lymph % (Auto) 23.3, [place] % (Auto) 5.6, Eos % (Auto) 2.8, Baso % (Auto) 0.6, Neut # (Auto) 7.3, Lymph # (Auto) 2.5, [place] # (Auto) 0.6, Eos # (Auto) 0.3, Baso # (Auto) 0.1, Sodium 140, Potassium 3.7, Chloride 108 H, Carbon Dioxide 26, Anion Gap 9.7, BUN 19, Creatinine 0.90, Estimated Creat Clear 107, Estimated GFR 93, Est GFR ( Amer) 112, Glucose 182 H, Calcium 9.2, Total Bilirubin 0.5, AST 28, ALT 36, Alkaline Phosphatase 81, Total Protein 7.1, Albumin 4.1, Globulin 3.0, Albumin/Globulin Ratio 1.4, Lipase 71, HIV 1&2 Antibody Rapid Nonreactive 03/08/24 23:11: Lactate 1.8 03/08/24 21:33 03/08/24 21:33 Orders (Tests/Meds): ED MEDICATIONS Discontinued Medications Generic Name Dose Route Start Last Admin Trade Name Hamida PRN Reason Stop Dose Admin Acetaminophen 1,000 mg 03/08/24 21:22 03/08/24 21:38 Acetaminophen 1,000mg/100ml Vial IV 03/08/24 21:23 1,000 mg ONCE ONE Administration Hydromorphone HCl 0.5 mg 03/08/24 21:22 03/08/24 21:38 Hydromorphone 2mg/Ml Syringe IV 03/08/24 21:23 0.5 mg ONCE ONE Administration Iopamidol 75 ml 03/08/24 22:20 03/08/24 22:23 Iopamidol-370 (76%);100ml Bottle IV 03/08/24 22:21 75 ml ONCE ONE Administration Ketorolac Tromethamine 15 mg 03/08/24 21:22 03/08/24 21:38 Ketorolac 30mg/Ml Vial IV 03/08/24 21:23 15 mg ONCE ONE Administration Lidocaine 1 each 03/08/24 23:53 03/08/24 23:55 Lidocaine 5% Transdermal Patch TP 03/08/24 23:54 1 each ONCE ONE Administration Sodium Chloride 10 ml 03/08/24 22:20 03/08/24 22:23 Sodium Chloride 0.9% 10ml Syr (Rad Only) IV 04/07/24 22:19 10 ml NEEDED PRN Administration Maintain IV Site ORDERS Category Date Time Status CT abdomen pelvis w con Stat Cat Scan 03/08/24 21:22 Completed CBC w/Auto Diff [Complete Blood Count Auto Diff] Stat Lab 03/08/24 21:33 Completed CMP [Comprehensive Metabolic Panel] Stat Lab 03/08/24 21:33 Completed HIV (1&2) Antibody Rapid Stat Lab 03/08/24 21:33 Completed Hep C Ab with Reflex to RNA Stat Lab 03/08/24 21:33 Received Lactic Acid Stat Lab 03/08/24 23:11 Completed Lipase Stat Lab 03/08/24 21:33 Completed Medical Decision Narrative: In summary patient is a 43-year-old male who presents to the emergency department for evaluation of abdominal pain. Patient is hemodynamically stable upon arrival, afebrile. Physical exam is remarkable for midline abdominal tenderness on palpation. Due to body habitus I am unable to appreciate his deeper structures as he has central obesity with a BMI of 45. He has normal bowel sounds no epigastric tenderness. He does have rectus diastases but has never had abdominal surgeries.. Differential diagnosis includes muscle tear versus hernia versus possible intra-abdominal injury though less likely. Initial workup will be conducted with hematologic labs CT scan abdomen pelvis. Initial interventions include Tylenol Dilaudid. Initial workup reviewed by me shows his hematologic labs are normal and nonactionable and my informal interpretation of his CT scan abdomen pelvis prior to radiology read shows a fat-containing umbilical hernia but no other acute processes. Patient does have diastases of the rectus muscle. Upon repeat evaluation patient did report significant reduction in his pain after initial intervention is tolerating oral intake. Given this patient is appropriate for discharge with weight lifting precautions no straining of the abdomen. Patient to follow-up PCP for no improvement or worsening signs or symptoms. <Sean Zamora MD - Last Filed: 03/09/24 19:05> Vital Signs: 03/08/24 20:53 03/08/24 22:00 03/08/24 22:30 Temperature 98.2 F Temperature Source Oral Pulse Rate 87 88 Pulse Rate [Left] 99 H Respiratory Rate 16 Blood Pressure 130/61 130/68 Blood Pressure [Right Arm] 133/91 H Blood Pressure Mean [Right Arm] 105 Blood Pressure Source 02 Sat by Pulse Oximetry 95 95 96 Oxygen Delivery Method Room Air Room Air 03/08/24 23:00 03/08/24 23:30 03/08/24 23:53 Temperature 98.2 F Temperature Source Oral Pulse Rate 87 80 81 Pulse Rate [Left] Respiratory Rate 16 Blood Pressure 91/52 L 82/46 L 102/56 L Blood Pressure [Right Arm] Blood Pressure Mean [Right Arm] Blood Pressure Source Automatic Cuff 02 Sat by Pulse Oximetry 96 95 Oxygen Delivery Method Room Air Room Air Room Air Lab Data Lab Results 03/08/24 21:33: WBC 10.8, RBC 5.33, Hgb 15.0, Hct 44.2, MCV 83.0, MCH 28.2, MCHC 34.0, RDW 13.9, Plt Count 218, MPV 8.5, Neut % (Auto) 67.6, Lymph % (Auto) 23.3, [place] % (Auto) 5.6, Eos % (Auto) 2.8, Baso % (Auto) 0.6, Neut # (Auto) 7.3, Lymph # (Auto) 2.5, [place] # (Auto) 0.6, Eos # (Auto) 0.3, Baso # (Auto) 0.1, Sodium 140, Potassium 3.7, Chloride 108 H, Carbon Dioxide 26, Anion Gap 9.7, BUN 19, Creatinine 0.90, Estimated Creat Clear 107, Estimated GFR 93, Est GFR ( Amer) 112, Glucose 182 H, Calcium 9.2, Total Bilirubin 0.5, AST 28, ALT 36, Alkaline Phosphatase 81, Total Protein 7.1, Albumin 4.1, Globulin 3.0, Albumin/Globulin Ratio 1.4, Lipase 71, HIV 1&2 Antibody Rapid Nonreactive 03/08/24 23:11: Lactate 1.8 Orders (Tests/Meds): ED MEDICATIONS Discontinued Medications Generic Name Dose Route Start Last Admin Trade Name Freq PRN Reason Stop Dose Admin Acetaminophen 1,000 mg 03/08/24 21:22 03/08/24 21:38 Acetaminophen 1,000mg/100ml Vial IV 03/08/24 21:23 1,000 mg ONCE ONE Administration Hydromorphone HCl 0.5 mg 03/08/24 21:22 03/08/24 21:38 Hydromorphone 2mg/Ml Syringe IV 03/08/24 21:23 0.5 mg ONCE ONE Administration Iopamidol 75 ml 03/08/24 22:20 03/08/24 22:23 Iopamidol-370 (76%);100ml Bottle IV 03/08/24 22:21 75 ml ONCE ONE Administration Ketorolac Tromethamine 15 mg 03/08/24 21:22 03/08/24 21:38 Ketorolac 30mg/Ml Vial IV 03/08/24 21:23 15 mg ONCE ONE Administration Lidocaine 1 each 03/08/24 23:53 03/08/24 23:55 Lidocaine 5% Transdermal Patch TP 03/08/24 23:54 1 each ONCE ONE Administration Sodium Chloride 10 ml 03/08/24 22:20 03/08/24 22:23 Sodium Chloride 0.9% 10ml Syr (Rad Only) IV 04/07/24 22:19 10 ml NEEDED PRN Administration Maintain IV Site ORDERS Category Date Time Status CT abdomen pelvis w con Stat Cat Scan 03/08/24 21:22 Completed CBC w/Auto Diff [Complete Blood Count Auto Diff] Stat Lab 03/08/24 21:33 Completed CMP [Comprehensive Metabolic Panel] Stat Lab 03/08/24 21:33 Completed HIV (1&2) Antibody Rapid Stat Lab 03/08/24 21:33 Completed Hep C Ab with Reflex to RNA Stat Lab 03/08/24 21:33 Received Lactic Acid Stat Lab 03/08/24 23:11 Completed Lipase Stat Lab 03/08/24 21:33 Completed Medical Decision Narrative: In summary patient is a 43-year-old male who presents to the emergency department for evaluation of abdominal pain. Patient is hemodynamically stable upon arrival, afebrile. Physical exam is remarkable for midline abdominal tenderness on palpation. Due to body habitus I am unable to appreciate his deeper structures as he has central obesity with a BMI of 45. He has normal bowel sounds no epigastric tenderness. He does have rectus diastases but has never had abdominal surgeries.. Differential diagnosis includes muscle tear versus hernia versus possible intra-abdominal injury though less likely. Initial workup will be conducted with hematologic labs CT scan abdomen pelvis. Initial interventions include Tylenol Dilaudid. Initial workup reviewed by me shows his hematologic labs are normal and nonactionable and my informal interpretation of his CT scan abdomen pelvis prior to radiology read shows a fat-containing umbilical hernia but no other acute processes. Patient does have diastases of the rectus muscle. Upon repeat evaluation patient did report significant reduction in his pain after initial intervention is tolerating oral intake. Given this patient is appropriate for discharge with weight lifting precautions no straining of the abdomen. Patient to follow-up PCP for no improvement or worsening signs or symptoms. I was consulted by the ZOYA, and we discussed the complexity of the problems being addressed. I approved the treatment and management plan for this patient's care in the Emergency Department, thus performing a substantive portion of the medical decision making. Sean Zamora MD <Mane Magdaleno MD - Last Filed: 03/08/24 23:55> Vital Signs: 03/08/24 20:53 03/08/24 22:00 03/08/24 22:30 Temperature 98.2 F Temperature Source Oral Pulse Rate 87 88 Pulse Rate [Left] 99 H Respiratory Rate 16 Blood Pressure 130/61 130/68 Blood Pressure [Right Arm] 133/91 H Blood Pressure Mean [Right Arm] 105 Blood Pressure Source 02 Sat by Pulse Oximetry 95 95 96 Oxygen Delivery Method Room Air Room Air 03/08/24 23:00 03/08/24 23:30 03/08/24 23:53 Temperature 98.2 F Temperature Source Oral Pulse Rate 87 80 81 Pulse Rate [Left] Respiratory Rate 16 Blood Pressure 91/52 L 82/46 L 102/56 L Blood Pressure [Right Arm] Blood Pressure Mean [Right Arm] Blood Pressure Source Automatic Cuff 02 Sat by Pulse Oximetry 96 95 Oxygen Delivery Method Room Air Room Air Room Air Lab Data Lab Results 03/08/24 21:33: WBC 10.8, RBC 5.33, Hgb 15.0, Hct 44.2, MCV 83.0, MCH 28.2, MCHC 34.0, RDW 13.9, Plt Count 218, MPV 8.5, Neut % (Auto) 67.6, Lymph % (Auto) 23.3, [place] % (Auto) 5.6, Eos % (Auto) 2.8, Baso % (Auto) 0.6, Neut # (Auto) 7.3, Lymph # (Auto) 2.5, [place] # (Auto) 0.6, Eos # (Auto) 0.3, Baso # (Auto) 0.1, Sodium 140, Potassium 3.7, Chloride 108 H, Carbon Dioxide 26, Anion Gap 9.7, BUN 19, Creatinine 0.90, Estimated Creat Clear 107, Estimated GFR 93, Est GFR ( Amer) 112, Glucose 182 H, Calcium 9.2, Total Bilirubin 0.5, AST 28, ALT 36, Alkaline Phosphatase 81, Total Protein 7.1, Albumin 4.1, Globulin 3.0, Albumin/Globulin Ratio 1.4, Lipase 71, HIV 1&2 Antibody Rapid Nonreactive 03/08/24 23:11: Lactate 1.8 Orders (Tests/Meds): ED MEDICATIONS Discontinued Medications Generic Name Dose Route Start Last Admin Trade Name Hamida PRN Reason Stop Dose Admin Acetaminophen 1,000 mg 03/08/24 21:22 03/08/24 21:38 Acetaminophen 1,000mg/100ml Vial IV 03/08/24 21:23 1,000 mg ONCE ONE Administration Hydromorphone HCl 0.5 mg 03/08/24 21:22 03/08/24 21:38 Hydromorphone 2mg/Ml Syringe IV 03/08/24 21:23 0.5 mg ONCE ONE Administration Iopamidol 75 ml 03/08/24 22:20 03/08/24 22:23 Iopamidol-370 (76%);100ml Bottle IV 03/08/24 22:21 75 ml ONCE ONE Administration Ketorolac Tromethamine 15 mg 03/08/24 21:22 03/08/24 21:38 Ketorolac 30mg/Ml Vial IV 03/08/24 21:23 15 mg ONCE ONE Administration Lidocaine 1 each 03/08/24 23:53 03/08/24 23:55 Lidocaine 5% Transdermal Patch TP 03/08/24 23:54 1 each ONCE ONE Administration Sodium Chloride 10 ml 03/08/24 22:20 03/08/24 22:23 Sodium Chloride 0.9% 10ml Syr (Rad Only) IV 04/07/24 22:19 10 ml NEEDED PRN Administration Maintain IV Site ORDERS Category Date Time Status CT abdomen pelvis w con Stat Cat Scan 03/08/24 21:22 Completed CBC w/Auto Diff [Complete Blood Count Auto Diff] Stat Lab 03/08/24 21:33 Completed CMP [Comprehensive Metabolic Panel] Stat Lab 03/08/24 21:33 Completed HIV (1&2) Antibody Rapid Stat Lab 03/08/24 21:33 Completed Hep C Ab with Reflex to RNA Stat Lab 03/08/24 21:33 Received Lactic Acid Stat Lab 03/08/24 23:11 Completed Lipase Stat Lab 03/08/24 21:33 Completed Medical Decision Narrative: In summary patient is a 43-year-old male who presents to the emergency department for evaluation of abdominal pain. Patient is hemodynamically stable upon arrival, afebrile. Physical exam is remarkable for midline abdominal tenderness on palpation. Due to body habitus I am unable to appreciate his deeper structures as he has central obesity with a BMI of 45. He has normal bowel sounds no epigastric tenderness. He does have rectus diastases but has never had abdominal surgeries.. Differential diagnosis includes muscle tear versus hernia versus possible intra-abdominal injury though less likely. Initial workup will be conducted with hematologic labs CT scan abdomen pelvis. Initial interventions include Tylenol Dilaudid. Initial workup reviewed by me shows his hematologic labs are normal and nonactionable and my informal interpretation of his CT scan abdomen pelvis prior to radiology read shows a fat-containing umbilical hernia but no other acute processes. Patient does have diastases of the rectus muscle. Upon repeat evaluation patient did report significant reduction in his pain after initial intervention is tolerating oral intake. Given this patient is appropriate for discharge with weight lifting precautions no straining of the abdomen. Patient to follow-up PCP for no improvement or worsening signs or symptoms. I was consulted by the ZOYA, and we discussed the complexity of the problems being addressed. I approved the treatment and management plan for this patient's care in the Emergency Department, thus performing a substantive portion of the medical decision making. Sean Zamora MD On reassessment patient edy hemodynamically stable. CT imaging was independently interpreted by me and shows no evidence of acute pathology, no hernia etc. Findings were communicated with patient, he was given instructions regarding symptomatic care, prescription for lidocaine patches and discharged in stable condition. Critical Care <DEVYN Bonner - Last Filed: 03/08/24 23:01> Critical Care Time Critical Care Time: No
--- NOTE | 2024-03-08 21:22 | CT_ITS ---
PROCEDURE INFORMATION: Exam: CT Abdomen And Pelvis With Contrast Exam date and time: 03/08/2024 10:24 PM Age: 43 years old Clinical indication: Abdominal pain; Acute; Additional info: Acute anterior abdominal pain TECHNIQUE: Imaging protocol: Computed tomography of the abdomen and pelvis with contrast. Radiation optimization: All CT scans at this facility use at least one of these dose optimization techniques: automated exposure control; mA and/or kV adjustment per patient size (includes targeted exams where dose is matched to clinical indication); or iterative reconstruction. Contrast material: ISOVUE; Contrast volume: 75 ml; Contrast route: IV; COMPARISON: CR XR HIP LT 2-3V W/PELVIS 10/16/2019 2:19 PM FINDINGS: Liver: Normal. No mass. Gallbladder and biliary ducts: Normal. No calcified stones. No ductal dilation. Pancreas: Normal. No ductal dilation. Spleen: Normal. No splenomegaly. Adrenal glands: Normal. No mass. Kidneys and ureters: Tiny probable cysts involving bilateral kidneys. No hydronephrosis. Stomach and bowel: Unremarkable. No obstruction. No mucosal thickening. Appendix: No evidence of appendicitis. Intraperitoneal space: Unremarkable. No free air. No significant fluid collection. Vasculature: Unremarkable. No abdominal aortic aneurysm. Lymph nodes: Unremarkable. No enlarged lymph nodes. Urinary bladder: Unremarkable as visualized. Reproductive: Unremarkable as visualized. Bones/joints: Unremarkable. No acute fracture. Soft tissues: Unremarkable. IMPRESSION: No acute findings.
[2024-03-08] MEDS: HYDROMORPHONE 2MG/ML SYRINGE 0.5 MG IV (21:38)
[2024-03-08] MEDS: ACETAMINOPHEN 1,000MG/100ML VIAL 1000 MG IV (21:38)
[2024-03-08] MEDS: KETOROLAC 30MG/ML VIAL 15 MG IV (21:38)
[2024-03-08 21:53] LABS: Basophils # 0.1 K/mm3 (0-0.2); Basophils % 0.6 % (0.1-2.0); Eosinophils # 0.3 K/mm3 (0.0-0.4); Eosinophils % 2.8 % (0.1-12.0); Hematocrit 44.2 % (42.0-52.0); Lymphocytes # 2.5 K/mm3 (0.7-4.5); Lymphocytes % 23.3 % (10-50); Mean Corpuscular Hemoglobin 28.2 pg (27.0-31.2); Mean Platelet Volume 8.5 fl (7.4-10.4); Monocytes # 0.6 K/mm3 (0.1-1.0); Monocytes % 5.6 % (1.7-9.3); Neutrophils # 7.3 K/mm3 (1.8-7.8); Neutrophils % 67.6 % (37.0-80.0); Platelet Count 218 K/mm3 (142-424); Red Blood Count 5.33 M/mm3 (4.60-6.20); Red Cell Distribution Width 13.9 % (11.5-17.5); White Blood Count 10.8 K/mm3 (4.8-10.8)
[2024-03-08 21:58] LABS: Alanine Aminotransferase 36 U/L (12-78); Albumin Level 4.1 g/dl (3.5-5.0); Albumin/Globulin Ratio 1.4 (1.1-1.8); Alkaline Phosphatase 81 U/L (38-126); Anion Gap 9.7 mEq/L (5-15); Aspartate Amino Transferase 28 U/L (17-59); Bilirubin,Total 0.5 mg/dl (0.2-1.3); Blood Urea Nitrogen 19 mg/dl (9-20); Calcium 9.2 mg/dl (8.4-10.2); Carbon Dioxide 26 mmol/L (22.0-30.0); Chloride 108 mmol/L (98-107); Creatinine Clearance Estimated 107 mL/min (50-200); Estimated Glomerular Filt Rate 93 ml/min (>60); GFR (African American) 112 ML/MIN (>60); Glucose 182 mg/dl (74-100); Potassium 3.7 mmoL/L (3.5-5.1); Sodium 140 mmol/L (136-145); Total Protein,Serum 7.1 g/dl (6.3-8.2)
[2024-03-08 22:00] VITALS: BP 130/61; PULSE 87; O2SAT 95
[2024-03-08 22:15] LABS: Lipase 71 U/L (23-300)
[2024-03-08] MEDS: SODIUM CHLORIDE 0.9% 10ML SYR (RAD ONLY) 10 ML IV (22:23)
[2024-03-08] MEDS: IOPAMIDOL-370 (76%);100ML BOTTLE 75 ML IV (22:23)
[2024-03-08 22:30] VITALS: BP 130/68; PULSE 88; O2SAT 96
[2024-03-08 23:00] VITALS: BP 91/52; PULSE 87; O2SAT 96
[2024-03-08 23:12] LABS: HIV (1&2) Antibody Rapid NONREACTIVE (NONREACTIVE)
[2024-03-08 23:30] VITALS: BP 82/46; PULSE 80; O2SAT 95
[2024-03-08 23:40] LABS: Lactic Acid 1.8 mmol/L (0.7-2.1)
--- NOTE | 2024-03-08 23:47 | PC.NURSE ---
Dr. Magdaleno at bedside
[2024-03-08 23:53] VITALS: BP 102/56; PULSE 81; RESP 16; TEMP 36.8; O2SAT 98
[2024-03-08] MEDS: LIDOCAINE 5% TRANSDERMAL PATCH 1 EACH TP (23:55)
[2024-03-10 09:20] LABS: HCV Ab Non Reactive (Non Reactive)
== END 2024-03-09 | disposition home or self-care (01) ==
PROVIDERS: Emergency Medicine; Physician Assistant; Emergency Provider Emergency Medicine; PCP Family Medicine
DX: S39.011A Strain of muscle, fascia and tendon of abdomen, initial encounter (principal); R10.9 Unspecified abdominal pain; X50.0XXA Overexertion from strenuous movement or load, initial encounter; Y93.89 Activity, other specified; Y92.89 Other specified places as the place of occurrence of the external cause
CPT/HCPCS: 74177; 80053; 83605; 83690; 85025; 86803; 87389; 96374; 96375; 99285; J0131; J1171; J1885; Q9967

== ENCOUNTER 2024-05-21 22:31 | Emergency (ER) | payer OTHER, SELFPAY ==
[2024-05-21 22:34] VITALS: BP 127/98; PULSE 94; RESP 20; TEMP 36.6; O2SAT 98; BMI 45.8
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
[2024-05-21 23:24] VITALS: BP 127/98; PULSE 94; RESP 20; TEMP 36.6; O2SAT 98
== END 2024-05-21 23:27 | disposition home or self-care (01) ==
PROVIDERS: Emergency Provider Emergency Medicine; PCP Family Medicine
DX: S06.0X0A Concussion without loss of consciousness, initial encounter (principal); R51.9 Headache, unspecified; M79.604 Pain in right leg; M79.605 Pain in left leg; X58.XXXA Exposure to other specified factors, initial encounter; Y93.89 Activity, other specified; Y92.89 Other specified places as the place of occurrence of the external cause
CPT/HCPCS: 99282

== ENCOUNTER 2024-06-26 14:47 | Emergency (ER) | payer OTHER, SELFPAY ==
[2024-06-26 15:07] VITALS: BP 157/70; PULSE 86; RESP 20; TEMP 36.9; O2SAT 97; BMI 45.3
[2024-06-26 15:16] LABS: UTC Strep Screen (Rapid) Negative (Negative)
--- NOTE | 2024-06-26 15:16 | EXP.UTC ---
Discharge Plan Disposition Patient Disposition: Home, Self-Care Condition: Good Prescriptions Prescriptions: New azithromycin 250 mg tablet 250 mg PO DIRECTED Qty: 6 0RF Rx Instructions: Take two (2) tablets on day #1, then one (1) tablet day #2 thru #5 No Action metformin 500 mg tablet 500 mg PO DAILY Patient Comments: TAKE 1 TABLET BY MOUTH TWICE DAILY WITH MEALS Referrals Follow up/Referrals: Ale Montejo MD [Primary Care Provider] - See instructions Activity Restrictions/Add. Instructions Additional Instructions/Restrictions: Start antibiotics today be sure to take it as ordered with the full length of time although you should start feeling better in 24-48 hours. Change toothbrush and toothpaste 24-48 hours after starting antibiotics Tylenol or Motrin as needed for fever or pain Encourage fluids, water, Gatorade, Powerade, try cold fluids, popsicles, ice cream will make it feel better You are contagious for 24 hours. Avoid kissing anyone, no eating or drinking after anyone. You are contagious. Follow-up the ER for new or worsening symptoms or no noticeable improvement over the next 24-48 hours. Follow-up with PCP this week. Clinical Impressions Clinical Impression: Strep throat Instructions Patient Instructions: DI for Strep Throat Print Language Print Language: Yemeni Discharge ED Provider: Matt ([facility] HPI General Stated complaint: uvula swollen, sore throat, Mode of Arrival: Ambulatory Source of Information: Patient Time Seen by Provider: 06/26/24 15:16 Description of Symptoms (Recalled from Triage Doc. by RN): SORE THROAT, SWOLLEN IN BACK OF THROAT, FATIGUE HEENT Symptoms (Recalled from RN notes): Yes Resp Symptoms (Recalled from RN notes): No Skin Symptoms (Recalled from RN notes): No MS Symptoms (Recalled from RN notes): No Functional Status (Recalled from RN notes): WNL History of Present Illness Provider Complaint: 43-year-old male presents for sore throat, swelling in the back of the throat, and fatigue that started last night. Patient states he is able to swallow correctly and no problems breathing Related Data Home Medications ?Medication ?Instructions ?Recorded ?Confirmed metformin 500 mg tablet 500 mg PO DAILY 06/26/24 06/26/24 Previous Rx's ?Medication ?Instructions ?Recorded azithromycin 250 mg tablet 250 mg PO DIRECTED #6 tabs 06/26/24 Allergies Allergy/AdvReac Type Severity Reaction Status Date / Time No Known Allergies Allergy Verified 05/22/22 15:18 Worker's Comp Is this a Worker's Comp case?: No [facility] Disclaimer: The information contained in this section may have been updated after the patient was seen, as this information can be updated by other users. Surgical History , [employer]) History of tympanostomy tube placement Social History , [employer]) Smoking Status: Never smoker second hand exposure: No alcohol intake: never substance use type: denies use current occupational status: other Travel in the last 8 weeks: None household members: significant other housing: house current occupational exposures/hazards: No caffeine: Yes Have you lived/traveled outside US in past 30 days?: No Contact w/someone who lives/traveled outside US past 30 days?: No Exposure to someone with infectious disease in past 14 days?: No Do you have a fever (greater than 100.4 F or 38 C)?: No Have you tested positive for COVID-19: No Exposed to someone with COVID-19 in past 14 days?: No Do you have a sore throat?: Yes Do you have a cough?: No Do you have any weakness?: No Do you have any diarrhea?: No Are you experiencing any unusual bleeding?: No Do you have any muscle aches/pain?: No Do you have any abdominal pain?: No Are you experiencing loss of taste or smell?: No ROS Obtained: Yes Systems reviewed as appropriate & no additional complaints except as documented Physical Exam General General appearance: alert and in no apparent distress ENT ENT exam: Present mucous membranes moist and TM's normal bilaterally Expanded ENT Exam Open Mouth Image: 1. Redness swelling Throat exam: Present tonsillar erythema, tonsillomegaly and tonsillar exudate Respiratory Respiratory exam: Present normal lung sounds bilaterally Cardiovascular Cardiovascular exam: Present regular rate and normal rhythm Back Exam Back exam: Present normal inspection and full ROM Neurological Exam Neurological exam: Present alert and oriented X3 Skin Skin exam: Present warm and intact Lymphatic Lymphatic Findings: no adenopathy Medical Decision Making Medical Records Medical records reviewed: Yes I reviewed the patient's medical records. Screening: Per USPSTF and CDC recommendations, given the prevalence of disease in our region, it is our hospital?s policy to screen for HIV and viral Hepatitis for all patients aged 18 and over and those with ongoing risk factors. Mark Inquiry Pt receiving controlled substance: No Vital Signs: 06/26/24 15:07 Temperature 98.4 F Temperature Source Oral Pulse Rate [Left Radial] 86 Respiratory Rate 20 Blood Pressure [Left Arm] 157/70 H Blood Pressure Mean [Left Arm] 99 02 Sat by Pulse Oximetry 97 Lab Data Lab results reviewed: Yes I reviewed the patient's lab results.
[2024-06-26 15:21] VITALS: BP 157/70; PULSE 86; RESP 20; TEMP 36.9
== END 2024-06-26 15:26 | disposition home or self-care (01) ==
PROVIDERS: Emergency Provider Nurse Practitioner Family; PCP Family Medicine
DX: J02.0 Streptococcal pharyngitis (principal)
CPT/HCPCS: 87880; 99213; G0381

== ENCOUNTER 2024-12-26 17:42 | Emergency (ER) | payer OTHER, SELFPAY ==
[2024-12-26 17:46] VITALS: BP 107/64; PULSE 92; RESP 16; O2SAT 96
--- NOTE | 2024-12-26 17:46 | ECG_ITS ---
APPROVED REPORT Exam: Resting ECG HR:91 bpm ECG Measurements Heart Rate 91 AXES IL 170 P 74 QRSd 85 QRS 77 QT 331 T 85 QTc 380 Conclusion SINUS RHYTHM NORMAL ECG UNCONFIRMED REPORT Electronically signed by : DESTINI FRY, 12/27/2024 23:45:39
--- NOTE | 2024-12-26 17:48 | ED_ITS ---
<Statement entered by Cici Arnold DO - 12/29/24 22:19> I was consulted by the ZOYA, and we discussed the complexity of problems being addressed. I approve the treatment and management plan for this patient's care in the emergency department, thus performing a substantial portion of the medical decision making. Cici Arnold DO Discharge Plan Disposition Patient Disposition: Home, Self-Care Condition: Good Prescriptions Prescriptions: No Action doxycycline hyclate 100 mg tablet 100 mg PO BID Qty: 20 0RF [id number]-sijuoqauy-GF [Bromfed DM] 2-30-10 mg/5 mL syrup 5 ml PO Q4-6H PRN (Reason: cold symptoms) Qty: 118 0RF methylprednisolone 4 mg tablets,dose pack See Rx Instructions PO PER PKG DIR Qty: 21 0RF Rx Instructions: PO PER PKG DIR metformin 500 mg tablet 500 mg PO DAILY Patient Comments: TAKE 1 TABLET BY MOUTH TWICE DAILY WITH MEALS azithromycin 250 mg tablet 250 mg PO DIRECTED Qty: 6 0RF Rx Instructions: Take two (2) tablets on day #1, then one (1) tablet day #2 thru #5 Referrals Follow up/Referrals: Ale Montejo MD [Primary Care Provider, Medical] - See instructions Activity Restrictions/Add. Instructions Additional Instructions/Restrictions: You were seen for syncope. Please follow up with your PCP next week. Return here if you have any return of syptoms. Clinical Impressions Clinical Impression: Syncope Instructions Patient Instructions: DI for Syncope in Adults (Fainting) Print Language Print Language: Nepali Discharge ED Provider: Cici Arnold General Adult HPI General Chief complaint: Syncope Stated complaint: syncope Time Seen by Provider: 12/26/24 17:46 History of Present Illness HPI narrative: Patient presents after a syncopal episode at work. He was working in a hot garage and started to feel lightheaded and dizzy. Approximately an hour later he went to the bathroom to splash some cold water on his face. He sat down on the toilet and then when he got up to leave the room he had a syncopal episode. He reports that he did hit his left shoulder. Denies any head injury. Denies any chest pain, shortness of breath, vomiting. Denies any fever. He has diabetes and takes metformin. MD complaint: Syncope Onset (ago): minute(s) Location: left and upper extremity Radiation: non-radiation Severity: mild Consistency: intermittent Relieving factors: cold therapy and other (IV fluids) Exacerbating factors: none Associated symptoms: denies other symptoms Treatments prior to arrival: cold therapy and other (IV fluids, ice pack) Related Data Home Medications ?Medication ?Instructions ?Recorded ?Confirmed metformin 500 mg tablet 500 mg PO DAILY 06/26/2404/12 Previous Rx's ?Medication ?Instructions ?Recorded azithromycin 250 mg tablet 250 mg PO DIRECTED #6 ta bs 06/26/24 [id number]-mmkzebizigoupai-XH 5 ml PO Q4-6H PRN c old symptoms 06/29/24 2 mg-30 mg-10 mg/5 mL oral syrup #118 mL (Bromfed DM) doxycycline hyclate 100 mg tablet 100 mg PO BID #20 ta bs 06/29/24 methylprednisolone 4 mg tablets in See Rx Instructions PO PER PKG DIR 06/29/24 a dose pack #21 tabs Allergies Allergy/AdvReac Type Severity Reaction Status Date / Time No Known Allergies Allergy Verified 06/29/24 11:51 [facility] Disclaimer: The information contained in this section may have been updated after the patient was seen, as this information can be updated by other users. Medical History Diabetes Dental abscess Dental caries Concussion Surgical History History of tympanostomy tube placement Family History Family/Other No significant family history Social History Smoking Status: Former smoker tobacco type: cigarettes packs per day: 2 second hand exposure: No alcohol intake: never substance use type: denies use current occupational status: other Travel in the last 8 weeks?: None household members: significant other housing: house current occupational exposures/hazards: No caffeine: Yes Have you lived/traveled outside US in past 30 days?: No Contact w/someone who lives/traveled outside US past 30 days?: No Exposure to someone with infectious disease in past 14 days?: No Do you have a fever (greater than 100.4 F or 38 C)?: No Have you tested positive for COVID-19?: No Exposed to someone with COVID-19 in past 14 days?: No Do you have a sore throat?: No Do you have a cough?: No Do you have any weakness?: No Do you have any diarrhea?: No Are you experiencing any unusual bleeding?: No Do you have any muscle aches/pain?: No Do you have any abdominal pain?: No Are you experiencing loss of taste or smell?: No Other Medical History Have you received the Flu Vaccine for this season: No Have you received the Pneumonia Vaccine: No ROS Obtained: Yes Systems reviewed as appropriate & no additional complaints except as documented Physical Exam General General appearance: alert and in no apparent distress Head Head exam: atraumatic and normocephalic Eye Eye exam: Present normal appearance and EOMI Chest Chest inspection: Present symmetric chest wall rise Respiratory Respiratory exam: Present normal lung sounds bilaterally; Absent wheezes or stridor Cardiovascular Cardiovascular exam: Present regular rate and normal rhythm; Absent systolic murmur Extremities Exam Extremities exam: Present full ROM Neurological Exam Neurological exam: Present alert, oriented X3, CN II-XII intact and other (Nonfocal neurologic exam); Absent motor sensory deficit Psychiatric Psychiatric exam: Present normal affect and normal mood Skin Skin exam: Present warm, dry and intact Medical Decision Making Medical Records Screening: Per USPSTF and CDC recommendations, given the prevalence of disease in our region, it is our hospital?s policy to screen for HIV and viral Hepatitis for all patients aged 18 and over and those with ongoing risk factors. Mark Inquiry Pt receiving controlled substance: No Vital Signs: 12/26/24 17:46 12/26/24 17:50 12/26/24 18:01 Temperature 98.9 F Temperature Source Oral Pulse Rate 92 H 92 H Pulse Rate [Right] 93 H Respiratory Rate 16 19 17 Blood Pressure 107/64 L 127/76 Blood Pressure [Right Arm] 107/64 L Blood Pressure Mean 88 87 Blood Pressure Mean [Right Arm] 78 Blood Pressure Source [Right Arm] Automatic Cuff 02 Sat by Pulse Oximetry 96 96 96 Oxygen Delivery Method Room Air Room Air Room Air 12/26/24 18:32 12/26/24 19:01 Temperature Temperature Source Pulse Rate 90 82 Pulse Rate [Right] Respiratory Rate 19 20 Blood Pressure 130/70 155/95 H Blood Pressure [Right Arm] Blood Pressure Mean 85 111 Blood Pressure Mean [Right Arm] Blood Pressure Source [Right Arm] 02 Sat by Pulse Oximetry 97 97 Oxygen Delivery Method Room Air Lab Data Lab Results 12/26/24 17:37: WBC 11.0 H, RBC 5.69, Hgb 15.6, Hct 46.1, MCV 81.0, MCH 27.4, MCHC 33.8, RDW 13.0, Plt Count 248, MPV 11.1 H, Neut % (Auto) 69.7, Lymph % (Auto) 20.6, [place] % (Auto) 6.8, Eos % (Auto) 2.0, Baso % (Auto) 0.5, Neut # (Auto) 7.7, Lymph # (Auto) 2.3, [place] # (Auto) 0.8, Eos # (Auto) 0.2, Baso # (Auto) 0.1, Sodium 135 L, Potassium 4.0, Chloride 102, Carbon Dioxide 21 L, A [place] 16.0 H, BUN 13, Creatinine 1.10, Estimated Creat Clear 87, Estimated GFR 73, Est GFR ( Amer) 88, Glucose 259 H, Calcium 9.4, Total Bilirubin 0.7, AST 29, ALT 31, Alkaline Phosphatase 104, Troponin I < 0.01, Total Protein 7.7, Albumin 4.6, Globulin 3.1, Albumin/Globulin Ratio 1.5 12/26/24 17:37 12/26/24 17:37 Orders (Tests/Meds): ED MEDICATIONS Generic Name Dose Route Start Last Admin Trade Name Freq PRN Reason Stop Dose Admin Sodium Chloride 10 ml 12/26/24 17:49 Sodium Chloride 0.9% 10ml Flush Syringe IV 01/25/25 17:48 NEEDED PRN Maintain IV Site Discontinued Medications Generic Name Dose Route Start Last Admin Trade Name Freq PRN Reason Stop Dose Admin Sodium Chloride 1,000 mls @ 999 mls/hr 12/26/24 17:49 12/26/24 17:59 Sod Chlor 0.9% 1000ml Bag IV 12/26/24 18:49 999 mls/hr .Q1H1M ONE Administration ORDERS Category Date Time Status Chest XR -- portable [XR chest portable] Stat Exams 12/26/24 17:49 Completed Shoulder XR left minimum 2 views [XR shoulder LT min 2V Exams 12/26/24 17:49 Completed ] Stat CBC w/Auto Diff [Complete Blood Count Auto Diff] Stat Lab 12/26/24 17:37 Completed CMP [Comprehensive Metabolic Panel] Stat Lab 12/26/24 17:37 Completed Trop I [Troponin I] Stat Lab 12/26/24 17:37 Completed Troponin I Q3H Lab 12/26/24 21:00 Ordered Troponin I Q3H Lab 12/27/24 00:00 Ordered Medical Decision Narrative: In summary patient is a 44-year-old male who presents the emergency department for evaluation of syncope. Patient is hemodynamically stable upon arrival, afebrile. Unremarkable physical exam. Differential diagnosis includes heat related syncope, dehydration, CONNER, ACS. Initial workup will be conducted with CBC, CMP, EKG, troponin, chest x-ray, shoulder x-ray. Initial inventions include IV fluids. Initial workup reviewed by me reveal hyperglycemia, he does have known diabetes. Upon repeat evaluation patient had resolution of his symptoms with IV fluids and ice packs applied by EMS. Given this patient is appropriate for discharge home at this time with instructions to follow-up with his PCP. Return to the ER for any worsening of symptoms.. Critical Care Critical Care Time Critical Care Time: No
--- NOTE | 2024-12-26 17:49 | XR_ITS ---
PROCEDURE INFORMATION: Exam: XR Left Shoulder Exam date and time: 12/26/2024 6:01 PM Age: 44 years old Clinical indication: Injury or trauma; Fall; Blunt trauma (contusions or hematomas); Shoulder; Left; Additional info: Fall onto shoulder TECHNIQUE: Imaging protocol: Radiologic exam of the left shoulder. Views: 2 or more views. COMPARISON: CR XR CHEST 2V 05/31/2022 4:25 PM FINDINGS: Bones/joints: Mild degenerative changes of the left acromioclavicular joint, with mild joint space narrowing and minimal osteophyte formation. No acute fracture or dislocation. Soft tissues: Normal. IMPRESSION: No acute fracture or dislocation.
--- NOTE | 2024-12-26 17:49 | XR_ITS ---
PROCEDURE INFORMATION: Exam: XR Chest Exam date and time: 12/26/2024 6:01 PM Age: 44 years old Clinical indication: Injury or trauma; Fall; Blunt trauma (contusions or hematomas); Additional info: Syncope TECHNIQUE: Imaging protocol: Radiologic exam of the chest. Views: 1 view. COMPARISON: CR XR CHEST 2V 05/31/2022 4:25 PM FINDINGS: Lungs: Normal. Pleural spaces: Normal. Heart/Mediastinum: Normal. Bones/joints: No acute abnormality. IMPRESSION: No acute findings.
[2024-12-26 17:50] VITALS: BP 107/64; PULSE 93; RESP 19; TEMP 37.2; O2SAT 96; BMI 45.0
[2024-12-26] MEDS: 0.9 % SODIUM CHLORIDE 1000ML 1,000 ML 999 ML IV (17:59)
[2024-12-26 18:01] VITALS: BP 127/76; PULSE 92; RESP 17; O2SAT 96
[2024-12-26 18:20] LABS: Hematocrit 46.1 % (42.0-52.0); Hemoglobin 15.6 g/dL (14.1-18.0); Immature Granulocytes % 0.4 %; Mean Corpuscular HGB Conc 33.8 g/dL (31.8-35.4); Mean Corpuscular Hemoglobin 27.4 pg (27.0-31.2); Mean Corpuscular Volume 81.0 fl (80-94); Nucleated Red Blood Cells % 0 %; Platelet Count 248 K/mm3 (142-424); Red Blood Count 5.69 M/mm3 (4.60-6.20); Red Cell Distribution Width-SD 37.9 fL; White Blood Count 11.0 K/mm3 (4.8-10.8)
[2024-12-26 18:32] VITALS: BP 130/70; PULSE 90; RESP 19; O2SAT 97
[2024-12-26 19:01] VITALS: BP 155/95; PULSE 82; RESP 20; O2SAT 97
[2024-12-26 19:03] LABS: Alanine Aminotransferase 31 U/L (12-78); Albumin Level 4.6 g/dl (3.5-5.0); Albumin/Globulin Ratio 1.5 (1.1-1.8); Alkaline Phosphatase 104 U/L (38-126); Anion Gap 16.0 mEq/L (5-15); Aspartate Amino Transferase 29 U/L (17-59); Bilirubin,Total 0.7 mg/dl (0.2-1.3); Blood Urea Nitrogen 13 mg/dl (9-20); Calcium 9.4 mg/dl (8.4-10.2); Carbon Dioxide 21 mmol/L (22.0-30.0); Chloride 102 mmol/L (98-107); Creatinine Clearance Estimated 87 mL/min (50-200); Creatinine,Serum 1.10 mg/dl (0.66-1.25); Estimated Glomerular Filt Rate 73 ml/min (>60); GFR (African American) 88 ML/MIN (>60); Globulin 3.1 g/dL (1.3-3.2); Glucose 259 mg/dl (74-100); Potassium 4.0 mmoL/L (3.5-5.1); Sodium 135 mmol/L (136-145); Total Protein,Serum 7.7 g/dl (6.3-8.2)
[2024-12-26 19:19] LABS: Troponin I < 0.01 ng/ml (0.00-0.034)
[2024-12-26 19:56] VITALS: BP 134/78; PULSE 70; RESP 16; TEMP 36.6; O2SAT 98
== END 2024-12-26 20:01 | disposition home or self-care (01) ==
PROVIDERS: Physician Assistant; Emergency Provider Student in an Organized Health Care Education/Training Program; PCP Family Medicine
DX: R55 Syncope and collapse (principal); E11.9 Type 2 diabetes mellitus without complications
CPT/HCPCS: 71045; 73030; 80053; 84484; 85025; 93005; 96360; 99285; J7030